=== PATIENT | female | born 1995 | race Caucasian/White ===

== ENCOUNTER 2020-05-22 13:03 | Outpatient (REF) | payer OTHER, SELFPAY ==
[2020-05-22 17:37] LABS: Glucose Urine UA NEG (NEG); Leukocyte Esterase Urine NEG (NEG); Nitrite Urine NEG (NEG); Specific Gravity - Urine <= 1.005 (1.005-1.025); Urine Blood TRACE (NEG); Urine Ketones NEG (NEG); Urine Protein NEG (NEG-TRACE)
[2020-05-22 17:40] LABS: Appearance Urine CLEAR; Color Urine STRAW
[2020-05-22 17:44] LABS: RBC Urine 0-2 /HPF (0); Squamous Epithelial Cell Urine TRACE /LPF; WBC Urine 0 /HPF (0-4)
[2020-05-23 09:35] LABS: BV Int Neg Control Negative (Negative); BV Int Pos Control Positive (Positive)
[2020-05-28 11:34] LABS: CT PCR NOT DETECTED (Not Detect.); NG PCR NOT DETECTED (Not Detect.)
== END 2020-05-22 13:04 | disposition home or self-care (01) ==
LOC: HO.LAB 13:03
PROVIDERS: PCP Internal Medicine; Referring Provider Internal Medicine; Visit Provider Advanced Practice Midwife
DX: N89.8 Other specified noninflammatory disorders of vagina (principal)
CPT/HCPCS: 81001; 87480; 87491; 87510; 87591; 87660; 99202

== ENCOUNTER → 2020-06-05 12:50 | Outpatient (BNVA) | payer OTHER, SELFPAY | PROVIDERS: PCP Internal Medicine; Visit Provider Advanced Practice Midwife | DX: Z76.89 Persons encountering health services in other specified circumstances (principal) ==

== ENCOUNTER 2020-12-09 11:00 | Outpatient (REF) | payer OTHER, SELFPAY ==
[2020-12-10 02:37] LABS: CT PCR NOT DETECTED (Not Detect.); NG PCR NOT DETECTED (Not Detect.)
[2020-12-10 09:16] LABS: BV Int Neg Control Negative (Negative); BV Int Pos Control Positive (Positive)
== END 2020-12-09 11:01 | disposition home or self-care (01) ==
LOC: HO.LAB 11:00
PROVIDERS: PCP Internal Medicine; Visit Provider Advanced Practice Midwife
DX: Z01.411 Encounter for gynecological examination (general) (routine) with abnormal findings (principal); Z20.2 Contact with and (suspected) exposure to infections with a predominantly sexual mode of transmission; N89.8 Other specified noninflammatory disorders of vagina
CPT/HCPCS: 81025; 87480; 87491; 87510; 87591; 87660; 99212

== ENCOUNTER 2020-12-13 09:44 | Outpatient (REF) | payer OTHER, SELFPAY ==
--- NOTE | ~2020-12-13 | US_ITS ---
EXAMINATION: OBSTETRICAL ULTRASOUND, FIRST TRIMESTER HISTORY: 25-year-old with unknown LMP LMP: N/A COMPARISON: None in this TECHNIQUE: Real time transabdominal imaging with color and M-mode Doppler. FINDINGS: An empty intrauterine gestational sac is noted. The mean sac diameter is 7.4 mm corresponding to 5 weeks and 2 days of gestation. No pole noted. Both maternal ovaries are seen and appear normal. No free fluid. GESTATIONAL AGE: 1. GA from LMP: N/A wks 2. GA from AUA: 5.2 wks ESTIMATED DATE OF DELIVERY: 1. STAN from LMP: N/A 2. STAN from AUA: 08/13/2021 US/US OB <= 14 weeks fetus IMPRESSION: 1. An empty intrauterine gestational sac. 2. Mean sac diameter corresponding to 5.2 weeks. No pole noted. This can be consistent with the early gestational age. A serial serum beta hCG and a follow-up ultrasound in one week should be considered. Thank you very much for this referral. This note was generated with a voice recognition program. Please excuse any errors which may have been overlooked during my review of this note. Sometimes these errors may affect the content or meaning of a given sentence.
--- NOTE | ~2020-12-13 | US_ITS ---
EXAMINATION: OBSTETRICAL ULTRASOUND, FIRST TRIMESTER HISTORY: 25-year-old with unknown LMP LMP: N/A COMPARISON: None in this TECHNIQUE: Real time transabdominal imaging with color and M-mode Doppler. FINDINGS: An empty intrauterine gestational sac is noted. The mean sac diameter is 7.4 mm corresponding to 5 weeks and 2 days of gestation. No pole noted. Both maternal ovaries are seen and appear normal. No free fluid. GESTATIONAL AGE: 1. GA from LMP: N/A wks 2. GA from AUA: 5.2 wks ESTIMATED DATE OF DELIVERY: 1. STAN from LMP: N/A 2. STAN from AUA: 08/13/2021 US/US OB transvaginal IMPRESSION: 1. An empty intrauterine gestational sac. 2. Mean sac diameter corresponding to 5.2 weeks. No pole noted. This can be consistent with the early gestational age. A serial serum beta hCG and a follow-up ultrasound in one week should be considered. Thank you very much for this referral. This note was generated with a voice recognition program. Please excuse any errors which may have been overlooked during my review of this note. Sometimes these errors may affect the content or meaning of a given sentence.
== END 2020-12-13 09:45 | disposition home or self-care (01) ==
LOC: HO.US 09:44
PROVIDERS: Visit Provider Advanced Practice Midwife
DX: Z32.01 Encounter for pregnancy test, result positive (principal); Z36.87 Encounter for antenatal screening for uncertain dates
CPT/HCPCS: 76801; 76817

== ENCOUNTER 2020-12-20 12:35 | Outpatient (REF) | payer OTHER, SELFPAY ==
--- NOTE | ~2020-12-20 | US_ITS ---
EXAMINATION: OBSTETRICAL ULTRASOUND, FIRST TRIMESTER HISTORY: 25-year-old at 6.2 weeks of gestation Viability LMP: Uncertain COMPARISON: 12/13/2020 TECHNIQUE: Real time transabdominal imaging with color and M-mode Doppler. FINDINGS: A single, live IUP CRL of 3.3 mm c/w 6.0wks is noted. Heart Rate: 88 beats per minute. Both maternal ovaries are seen and appear normal. GESTATIONAL AGE: 1. GA from LMP: 6.2 wks 2. GA from AUA: 6.0 wks ESTIMATED DATE OF DELIVERY: 1. STAN from LMP: 08/13/2021 2. STAN from AUA: 08/15/2021 US/US OB <= 14 weeks fetus IMPRESSION: 1. A single live IUP with CRL consistent with 6.0 weeks 2. heart rate of 88 bpm. No heart rate is slow within expected. However, this can be consistent with her GA. 3. Suggest a follow-up in one week. Thank you very much for this referral. This note was generated with a voice recognition program. Please excuse any errors which may have been overlooked during my review of this note. Sometimes these errors may affect the content or meaning of a given sentence.
== END 2020-12-20 12:36 | disposition home or self-care (01) ==
LOC: HO.US 12:35
PROVIDERS: PCP Internal Medicine; Visit Provider Advanced Practice Midwife
DX: Z34.91 Encounter for supervision of normal pregnancy, unspecified, first trimester (principal)
CPT/HCPCS: 36415; 76801; 84702

== ENCOUNTER 2020-12-30 14:18 | Outpatient (REF) | payer OTHER, SELFPAY ==
--- NOTE | ~2020-12-30 | US_ITS ---
EXAMINATION: US OBSTETRICAL FOLLOW UP WITH BIOPHYSICAL PROFILE CLINICAL INFORMATION: Follow-up slow heart rate COMPARISON: Previous OB ultrasounds most recent 12/20/2020 TECHNIQUE: Real time transabdominal imaging with color and M-mode Doppler. Findings: The uterus is anteverted. There is an intrauterine gestational sac. Platina-rump length measures 1.0 cm suggesting gestational age of 7 weeks 1 day with estimated date of delivery of 08/17/2021. heart rate is 152 bpm. There is a yolk sac. There is a small hypoechoic area adjacent to the gestational sac suggestive of a small subchorionic hemorrhage. This measures 2.4 x 0.3 x 2.8 cm. The right maternal ovary is normal-appearing and measures 2 x 1.3 x 1.3 cm. The left maternal ovary measures 2.3 x 1.6 x 1.5 cm. There is a 1.4 x 1.2 x 1.7 cm left ovarian cyst. There is no fluid in the pelvis. US/US OB follow up IMPRESSION: Single viable intrauterine fetus. From today's measurements, gestational age is estimated at 7 weeks 1 day with estimated date of delivery of 08/17/2021.
== END 2020-12-30 14:19 | disposition home or self-care (01) ==
LOC: HO.US 14:18
PROVIDERS: Visit Provider Obstetrics & Gynecology
DX: O26.891 Other specified pregnancy related conditions, first trimester (principal); R10.2 Pelvic and perineal pain
CPT/HCPCS: 76816; 99212

== ENCOUNTER 2020-12-30 15:35 | Outpatient (REF) | payer OTHER, SELFPAY ==
[2020-12-31 06:07] LABS: CT PCR NOT DETECTED (Not Detect.); NG PCR NOT DETECTED (Not Detect.)
== END 2020-12-30 15:36 | disposition home or self-care (01) ==
LOC: HO.LAB 15:35
PROVIDERS: Visit Provider Obstetrics & Gynecology
DX: O26.891 Other specified pregnancy related conditions, first trimester (principal); R10.2 Pelvic and perineal pain
CPT/HCPCS: 86850; 86900; 86901; 87491; 87591

== ENCOUNTER → 2021-01-15 13:22 | Outpatient (BNVA) | payer OTHER, SELFPAY | PROVIDERS: PCP Internal Medicine; Visit Provider Advanced Practice Midwife | DX: O26.891 Other specified pregnancy related conditions, first trimester (principal); R63.6 Underweight; R48.0 Dyslexia and alexia; Z3A.09 9 weeks gestation of pregnancy | CPT/HCPCS: 99212 ==

== ENCOUNTER 2021-01-31 14:29 | Outpatient (REF) | payer OTHER, SELFPAY ==
--- NOTE | ~2021-01-31 | US_ITS ---
EXAMINATION: OBSTETRICAL ULTRASOUND, FIRST TRIMESTER HISTORY: 25-year-old at 11.5 weeks of gestation NT screening COMPARISON: 12/30/2020 TECHNIQUE: Real time transabdominal imaging with color and M-mode Doppler. FINDINGS: A single, live IUP CRL of 59.1 mm c/w 12.3wks is noted. Heart Rate: 170 beats per minute. Normal yolk sac seen. NT was 1.29.mm. NB Present The embryo appears sonographically wnl for this GA. Both maternal ovaries are seen and appear normal. GESTATIONAL AGE: 1. Established GA: 11.5 wks 2. GA from AUA: 12.3 wks ESTIMATED DATE OF DELIVERY: 1. Established STAN: 08/17/2021 2. STAN from AUA: 08/12/2021 US/US OB 1T nuc measure IMPRESSION: 1. Single live IUP 2. Size equals dates 3. NT of 1.29 mm MFM Consultation: I reviewed the ultrasound findings along with significance of NT measurement. The NT of less than 3mm is generally reassuring. However, the sensitivity for T21 detection is only 60%. I reviewed the availability of serum aneuploidy screening which includes cell-free DNA and placental protein based tests. I discussed the sensitivity, false-positive rate, and other limitations associated with each test. I also reviewed the availability of invasive diagnostic tests that are associated small but definite risk of miscarriage. We also reviewed the differences between screening tests and diagnostic tests. After our discussion, she opted for the First trimester screening that is based on cell-free DNA or non-invasive testing (NIPT). The result will be faxed to your office in approximately 7 days. A follow up at 18 weeks for survey has been scheduled. Thank you very much for this referral. Total time 30 minutes. The time spent was devoted to counseling the patient about the disease and diagnosis, coordinating care including reviewing her records, pertinent lab data and studies, as well as discussing diagnostic evaluation and workup, plan therapeutic interventions and future disposition of care. This includes any additional research needed to obtain further information in formulating the plan of care of this patient. This note was generated with a voice recognition program. Please excuse any errors which may have been overlooked during my review of this note. Sometimes these errors may affect the content or meaning of a given sentence.
== END 2021-01-31 14:30 | disposition home or self-care (01) ==
LOC: HO.US 14:29
PROVIDERS: PCP Internal Medicine; Visit Provider Advanced Practice Midwife
DX: Z34.90 Encounter for supervision of normal pregnancy, unspecified, unspecified trimester (principal); Z36.82 Encounter for antenatal screening for nuchal translucency
CPT/HCPCS: 76813

== ENCOUNTER 2021-03-21 13:22 | Outpatient (REF) | payer OTHER, SELFPAY ==
[2021-03-22 01:57] LABS: CT PCR NOT DETECTED (Not Detect.); NG PCR NOT DETECTED (Not Detect.)
[2021-03-22 15:20] LABS: BV Int Neg Control Negative (Negative); BV Int Pos Control Positive (Positive)
== END 2021-03-21 13:23 | disposition home or self-care (01) ==
LOC: HO.LAB 13:22
PROVIDERS: PCP Internal Medicine; Visit Provider Advanced Practice Midwife
DX: O99.342 Other mental disorders complicating pregnancy, second trimester (principal); F41.9 Anxiety disorder, unspecified; O26.892 Other specified pregnancy related conditions, second trimester; R48.0 Dyslexia and alexia; Z3A.18 18 weeks gestation of pregnancy
CPT/HCPCS: 81003; 87480; 87491; 87510; 87591; 87660; 88142; 99212

== ENCOUNTER 2021-03-24 10:46 | Outpatient (REF) | payer OTHER, SELFPAY ==
[2021-03-24 12:57] LABS: Amphetamine Screen Urine Not Detected (Not Detect); Barbiturates, Urine Not Detected (Not Detect); Benzodiazepines Screen Urine Not Detected (Not Detect); Cannabinoid Screen Urine Not Detected (Not Detect); Cocaine Screen Urine Not Detected (Not Detect); Fentanyl, urine Not Detected (Not Detect); Opiate Screen Urine Not Detected (Not Detect); Phencyclidine Screen Urine Not Detected (Not Detect)
[2021-03-24 13:28] LABS: Hematocrit 30.4 % (37-47); Hemoglobin 10.4 g/dl (12.0-16.0); Mean Corpuscular HGB Conc 34.2 g/dl (31.0-35.0); Mean Corpuscular Hemoglobin 34.7 pg (27.0-33.0); Mean Corpuscular Volume 101.3 fL (80-98); Mean Platelet Volume 9.1 fL (9.4-12.3); Platelet Count 323 X10*3/uL (160-400); Red Cell Distribution Width 12.7 % (11.0-16.0); White Blood Count 13.3 X10*3/uL (4.8-10.8)
[2021-03-24 13:50] LABS: Glucose 1 Hour PP 50gm Dose 109 mg/dL (60-140)
[2021-03-24 14:22] LABS: Syphilis Screen Nonreactive (Nonreactive)
[2021-03-25 04:41] LABS: HBsAGNum1 0.21 S/CO (0.00-0.99); HIV AB/AG Nonreactive (Nonreactive); HIV Num 1 0.07 S/CO (0.00-0.99); Hepatitis B Surface Antigen Negative (Negative); ~HepC Num1 0.18 S/CO (0.00-0.79); ~Hepatitis C Antibody Nonreactive (Nonreactive)
== END 2021-03-24 10:47 | disposition home or self-care (01) ==
LOC: HO.LAB 10:46
PROVIDERS: PCP Internal Medicine; Visit Provider Advanced Practice Midwife
DX: Z34.90 Encounter for supervision of normal pregnancy, unspecified, unspecified trimester (principal)
CPT/HCPCS: 80307; 85027; 86762; 86780; 86787; 86803; 86850; 86900; 86901; 87086; 87340; 87389

== ENCOUNTER 2021-04-04 13:35 | Outpatient (REF) | payer OTHER, SELFPAY ==
--- NOTE | ~2021-04-04 | US_ITS ---
EXAMINATION: US OBSTETRICAL CLINICAL INFORMATION: A 25-year-old at 21.0 weeks of gestation Suspected anomaly COMPARISON: 01/31/2021 TECHNIQUE: Real-time transabdominal ultrasound was performed using C1-5 megahertz transducer. FINDINGS: A single, active, fetus is seen in vertex presentation. The placenta is anterior without previa, and the amniotic fluid volume is wnl. MEASUREMENTS: 1. Biparietal Diameter: 5.2 cm; 21.5 wks 2. Occipital Frontal Diameter: 6.6 cm 3. Head Circumference: 19.0 cm; 21.2 wks 4. Abdominal Circumference: 15.8 cm; 21.0 wks 5. Femur Length: 3.5 cm; 21.1 wks 6. Humerus Length: 3.3 cm; 21.1 wks 7. Tibia Length: 3.0 cm; 21.0 wks 8. Ulna Length: 3.1 cm; 21.3 wks 9. Lateral ventricle: 0.66 cm 10. Cerebellum: 2.1 cm; 21.0 wks 11. Cisterna Magna: 0.36 cm 12. Nuchal Fold: N/A mm 13. Heart Rate: 144 beats per minute Rt ovary: normal Lt ovary: normal Cervical length 3.9 cm on T/A. GESTATIONAL AGE: 1. Established GA: 21.0 wks 2. GA from [facility]: 21.2 wks ESTIMATED DATE OF DELIVERY: 1. Established STAN: 08/15/2021 2. STAN from [facility]: 08/13/2021 ANATOMY: The visualized anatomy includes but not limited to: 1. Cranium: Normal 2. Intracranial anatomy: cavum septum pellucidi, lateral ventricles, choroid plexus, cerebellum, posterior fossa, third and fourth ventricles. 3. face: orbits, lip/palate, profile, nasal bone 4. Heart: four-chamber view of the heart, ventricular septum, foramen ovale, pulmonary vein, left and right outflow tracts, three-vessel view, 3 vessel trachea view, aortic and ductal arches, situs.. 5. Diaphragm: Normal 6. Abdominal wall: Normal 7. Cord Insertion: Normal 8. Spine: Cervical, thoracic, lumbar, sacral. 9. Stomach: Normal size and shape 10. Right Kidney: Normal 11. Left Kidney: Normal 12. 3 vessel cord: Normal 13. Upper extremity: Open hands, fifth digit. 14. Lower extremity: Tibia, fibula, bilateral feet. 15. Bladder: Normal 16. Genitalia: Male, patient aware US/US OB /maternal detail IMPRESSION: 1. Single, living, intrauterine with appropriate biometry. 2. Normal survey DISCUSSION: I reviewed today's ultrasound findings. We discussed the limitations of ultrasound in diagnosing aneuploidy and other congenital abnormalities. I reviewed the differences between screening test and diagnostic test. Amniocentesis was discussed and declined. She was informed that the baseline incidence of congenital abnormalities is approximately 3-5%. Not all these conditions are diagnosable in utero. RECOMMENDATIONS: 1. Follow-up when necessary Thank you for allowing me to participate in her care. Total time 20 minutes. The time spent was devoted to counseling the patient about the disease and diagnosis, coordinating care including reviewing her records, pertinent lab data and studies, as well as discussing diagnostic evaluation and workup, plan therapeutic interventions and future disposition of care. This includes any additional research needed to obtain further information in formulating the plan of care of this patient. This note was generated with a voice recognition program. Please excuse any errors which may have been overlooked during my review of this note. Sometimes these errors may affect the content or meaning of a given sentence.
== END 2021-04-04 13:36 | disposition home or self-care (01) ==
LOC: HO.US 13:35
PROVIDERS: PCP Internal Medicine; Visit Provider Obstetrics & Gynecology
DX: Z36.3 Encounter for antenatal screening for malformations (principal); O26.892 Other specified pregnancy related conditions, second trimester; F41.9 Anxiety disorder, unspecified; R48.0 Dyslexia and alexia; R63.6 Underweight
CPT/HCPCS: 76811

== ENCOUNTER 2021-04-22 08:51 | Outpatient (REF) | payer OTHER, SELFPAY ==
[2021-04-22 14:36] LABS: CT PCR NOT DETECTED (Not Detect.); NG PCR NOT DETECTED (Not Detect.)
[2021-04-23 11:00] LABS: BV Int Neg Control Negative (Negative); BV Int Pos Control Positive (Positive)
== END 2021-04-22 08:52 | disposition home or self-care (01) ==
LOC: HO.LAB 08:51
PROVIDERS: PCP Internal Medicine; Visit Provider Obstetrics & Gynecology
DX: O26.892 Other specified pregnancy related conditions, second trimester (principal); N89.8 Other specified noninflammatory disorders of vagina; R30.0 Dysuria; Z3A.23 23 weeks gestation of pregnancy
CPT/HCPCS: 87086; 87480; 87491; 87510; 87591; 87660; 99212

== ENCOUNTER 2021-05-20 15:32 | Outpatient (REF) | payer OTHER, SELFPAY ==
[2021-05-21 09:31] LABS: CT PCR NOT DETECTED (Not Detect.); NG PCR NOT DETECTED (Not Detect.)
[2021-05-21 10:03] LABS: BV Int Neg Control Negative (Negative); BV Int Pos Control Positive (Positive)
== END 2021-05-20 15:33 | disposition home or self-care (01) ==
LOC: HO.LAB 15:32
PROVIDERS: PCP Internal Medicine; Visit Provider Obstetrics & Gynecology
DX: O26.892 Other specified pregnancy related conditions, second trimester (principal); Z23 Encounter for immunization; N89.8 Other specified noninflammatory disorders of vagina; Z3A.27 27 weeks gestation of pregnancy
CPT/HCPCS: 87480; 87491; 87510; 87591; 87660; 99212

== ENCOUNTER 2021-05-24 09:16 | Outpatient (REF) | payer OTHER, SELFPAY ==
[2021-05-24 11:15] LABS: Hematocrit 30.1 % (37.0-47.0); Mean Corpuscular HGB Conc 33.2 g/dl (31.0-35.0); Mean Corpuscular Hemoglobin 34.6 pg (27.0-33.0); Mean Corpuscular Volume 104.2 fL (80.0-98.0); Mean Platelet Volume 9.4 fL (9.4-12.3); Platelet Count 260 X10*3/uL (160-400); Red Blood Count 2.89 X10*6/uL (4.20-5.50); Red Cell Distribution Width 12.9 % (11.0-16.0); White Blood Count 12.5 X10*3/uL (4.8-10.8)
[2021-05-24 12:12] LABS: Glucose 1 Hour PP 50gm Dose 109 mg/dL (60-140)
[2021-05-26 04:00] LABS: Syphilis Screen Nonreactive (Nonreactive)
== END 2021-05-24 09:17 | disposition home or self-care (01) ==
LOC: HO.LAB 09:16
PROVIDERS: PCP Internal Medicine; Visit Provider Obstetrics & Gynecology
DX: Z34.92 Encounter for supervision of normal pregnancy, unspecified, second trimester (principal)
CPT/HCPCS: 36415; 85027; 86780

== ENCOUNTER → 2021-06-04 13:54 | Outpatient (BNVA) | payer OTHER, SELFPAY | PROVIDERS: PCP Internal Medicine; Visit Provider Obstetrics & Gynecology | DX: Z23 Encounter for immunization (principal); Z34.03 Encounter for supervision of normal first pregnancy, third trimester; Z3A.29 29 weeks gestation of pregnancy | CPT/HCPCS: 90471; 90715; 99212 ==

== ENCOUNTER → 2021-06-18 14:33 | Outpatient (BNVA) | payer OTHER, SELFPAY | PROVIDERS: PCP Internal Medicine; Visit Provider Obstetrics & Gynecology | DX: Z34.03 Encounter for supervision of normal first pregnancy, third trimester (principal); Z3A.31 31 weeks gestation of pregnancy | CPT/HCPCS: 99212 ==

== ENCOUNTER 2021-07-14 15:25 | Outpatient (REF) | payer OTHER, SELFPAY ==
[2021-07-15 13:47] LABS: CT PCR NOT DETECTED (Not Detect.); NG PCR NOT DETECTED (Not Detect.)
[2021-07-16 08:57] LABS: BV Int Neg Control Negative (Negative); BV Int Pos Control Positive (Positive)
== END 2021-07-14 15:26 | disposition home or self-care (01) ==
LOC: HO.LAB 15:25
PROVIDERS: PCP Internal Medicine; Visit Provider Advanced Practice Midwife
DX: O36.8130 Decreased fetal movements, third trimester, not applicable or unspecified (principal); Z3A.35 35 weeks gestation of pregnancy
CPT/HCPCS: 59025; 87081; 87147; 87480; 87491; 87510; 87591; 87660; 99212

== ENCOUNTER → 2021-07-25 12:52 | Outpatient (BNVA) | payer OTHER, SELFPAY | PROVIDERS: PCP Internal Medicine; Visit Provider Advanced Practice Midwife | DX: O99.820 Streptococcus B carrier state complicating pregnancy (principal); Z3A.36 36 weeks gestation of pregnancy | CPT/HCPCS: 99212 ==

== ENCOUNTER → 2021-08-06 14:36 | Outpatient (BNVA) | payer OTHER, SELFPAY | PROVIDERS: PCP Internal Medicine; Visit Provider Advanced Practice Midwife | DX: O36.8130 Decreased fetal movements, third trimester, not applicable or unspecified (principal); O99.820 Streptococcus B carrier state complicating pregnancy; Z3A.38 38 weeks gestation of pregnancy | CPT/HCPCS: 59025; 99212 ==

== ENCOUNTER 2024-03-31 13:46 | Outpatient (AMB) | payer OTHER, SELFPAY ==
[2024-03-31 13:48] VITALS: BP 122/76; PULSE 87; O2SAT 99; BMI 22.4
--- NOTE | 2024-03-31 13:48 | A.OFFPC_ITS ---
Vital Signs 3 03/31/24 13:48 Height 5 ft 1 in Weight 118 lb 8 oz BMI 22.4 BP 122/76 Blood Pressure Location Rt brachial Position Sitting Pulse 87 Pulse Source Pulse Oximeter Pulse Oximetry (%) 99 Oxygen Delivery Method Room Air Intake Visit Reasons: Regular visit Allergies No Known Allergies [No Known Allergies*] Allergy (Verified 03/31/24 13:48) Medication List - Last Reconciled 03/31/24 by Joy Simpson MD meclizine 25 mg PO TID PRN 30 days PNV,calcium 65-hvao-pqawz acid 27 mg iron- 1 mg ( Vitamins Plus Low Iron) 1 tab PO DAILY Tobacco use date assessed: 03/31/24 Dental Screening Dental Screen Date: 03/31/24 Did you have a dental visit in the last 12 months?: Yes Did you have a dental problem in the last 6 months where you did not have access to dental care?: No Was dental information given to patient?: Patient has dentist HPI Regular visit 2 HPI0 Details Patient is a 48-year-old female came in for establish care Complaining of feeling dizzy for the past 1 week Patient says that every time she moves her head or when she stand up from sitting position she feels dizzy She does not have any history of allergies There is no ear pain there is no fever no chills She also have a small lump in the back that she need to be checked Patient have a 2-year-old child and she had a miscarriage in October After the delivery 2 years ago she has developed lot of striations around her abdomen I am treating her with meclizine 25 mg she may take that every 8 hour if needed Patient was instructed not to move quickly to avoid the dizzy spells Lab order placed to be done fasting Cyst in her back is size of large Pea, and look since it feels like a dermoid cyst She is to return in 4 or 6 weeks for follow-up appointment [facility] Medical History Stomach acid Family History Maternal Grandmother Diabetes Cancer of breast Father Diabetes HTN (hypertension) Obesity Sister Microcephalic Social History Household Members: Significant Other and Other Household Members Other:: Significant other's mother Housing: Apartment Are you a primary animal care giver to a significant other at home: No Do you presently have visiting nurse or other home services: No Alcohol intake: former Patient Tobacco Use Status: Former Tobacco user e-Cigarette/Vaping Use: Never Used Substance Use Type: Marijuana service: No Current occupational status: unemployed Gender identity: Female Cognitive needs: No Hearing needs: No Vision needs: No Female Reproductive History Menstrual Age of Menarche: 14 Questionnaire PHQ-9 Over the last 2 weeks, how often have you been bothered by any of the following problems? 1. Little interest or pleasure in doing things: more than half the days 2. Feeling down, depressed, or hopeless: nearly every day 3. Trouble falling or staying asleep, or sleeping too much: more than half the days 4. Feeling tired or having little energy: more than half the days 5. Poor appetite or overeating: more than half the days 6. Feeling bad about yourself - or that you are a failure or have let yourself or your family down: several days 7. Trouble concentrating on things, such as reading the newspaper or watching television: more than half the days 8. Moving or speaking so slowly that other people could have noticed. Or the opposite - being so fidgety or restless that you have been moving around a lot more than usual: several days 9. Thoughts that you would be better off or of hurting yourself in some way: several days Total score: 16 Depression Screening Interpretation: Positive Depression Screening Follow-up: Follow-up Visit Requested Depression Screening Done: Yes 41292 - PHQ-9 Billing: Yes Source: Developed by Drs. Gerard Chandler, Elizabet Horner, Stephon Craig and colleagues, with an educational chintan from [employer]. Thrive Questionnaire Date Thrive assessed: 03/31/24 I am a: Patient What is your living situation today?: I have a steady place to live Within the past 12 months, did the food you bought not last and you didn't have the money to get more?: Never true Within the past 12 months, did you worry whether your food would run out before you got money to buy more?: Never true Do you have trouble paying for medicines?: Yes Do you have trouble getting transportation to medical appointments?: Yes Do you have trouble paying your heating and electricity bill?: I choose not to answer this question Do you have trouble taking care of your child, family member or friend?: No Do you have trouble with day-to-day activities such as bathing, preparing meals, shopping, managing finances, etc.?: I choose not to answer this question Are you currently unemployed and looking for a job?: I choose not to answer this question Are you interested in more education?: I choose not to answer this question Please select the resources that you would like help with: None Currently or been in a relationship where the following occur: No concerns reported THRIVE Score: 1 AUDIT C Alcohol Use Questionnaire (AUDIT-C) 1. How often do you have a drink containing alcohol?: Never 3. How often do you have six or more drinks on one occasion?: Never Total Score: 0 Score Reviewed/Action Taken: Yes BRODIE-7 AMB Questionnaire BRODIE-7 Date BRODIE - 7 assessed: 03/31/24 Feeling nervous, anxious, or on edge: 1 = Several days Not being able to stop or control worryin = Several days Worrying too much about different things: 1 = Several days Trouble relaxin = Not at all Being so restless that it is hard to sit still: 0 = Not at all Becoming easily annoyed or irritable: 0 = Not at all Feeling afraid as if something awful might happen: 0 = Not at all Total BRODIE-7 score (0-4 normal; 5-9 mild; 10-14 moderate; 15-21 severe): 3 Source: Developed by Drs. Gerard Chandler, Elizabet Horner, Stephon Craig and colleagues, with an educational chintan from [employer]. BRODIE-7 Assessment Billing BRODIE-7 Assessment Tool: BRODIE-7 Assessment 30044 Review of Systems Const Denies chills, Denies fever(s), Denies night sweats and Denies weight loss Eyes Denies blurry vision and Denies eye discharge ENT Denies dysphagia, Denies vertigo, Denies tinnitus, Denies sinus pressure and Denies sore throat Card Denies acrocyanosis, Denies chest pain at rest, Denies chest pain with activity, Denies syncope, Denies lightheadedness, Denies palpitations and Denies dyspnea Resp Denies chest congestion, Denies cough, Denies hemoptysis, Denies pain with cough and Denies dyspnea GI Denies dysphagia, Denies fecal incontinence, Denies diarrhea and Denies nausea Musc Denies tingling Skin/Breast Denies breast pain, Denies pruritus, Denies non-healing lesions, Denies rash and Denies jaundice Neuro Denies vertigo, Denies syncope, Denies tingling, Denies paresthesias and Denies tremor(s) Endo Denies cold intolerance, Denies heat intolerance and Denies palpitations León/Lymph Denies easy bleeding Physical exam (Primary Care) Vital Signs: Last Vital Signs Pulse 87 03/31/24 13:48 BP 122/76 03/31/24 13:48 Pulse Ox 99 03/31/24 13:48 Oxygen Delivery Method Room Air 03/31/24 13:48 BMI result Body Mass Index 22.4 Tobacco/Smoking Status: Tobacco use Status Tobacco use date assessed 03/31/24 03/31/24 13:49 Patient Tobacco Use Status Former Tobacco user 03/31/24 13:49 e-Cigarette/Vaping Use Never Used 03/31/24 13:49 PHQ-9: PHQ-9 Score PHQ-9: Total score 16 03/31/24 14:18 Depression Screening Interpretation: Positive Depression Screening Follow-up: Follow-up Visit Requested Thrive Assessment: Date of Thrive Assessment Date Thrive assessed 03/31/24 03/31/24 14:16 Currently or been in a relationship where the following occur: No concerns reported Const General: cooperative, comfortable and no acute distress Orientation/consciousness: patient oriented x3 [facility] Head: Yes normocephalic and Yes atraumatic Ears: hearing grossly normal bilaterally and external ears normal General nose exam: Normal external nose present Face and sinus: No erythema Mouth: lip normal and no drooling Eyes General: appearance normal, both eyes and all related structures Eyelids: Yes eyelids normal Conjunctivae: conjunctivae normal Sclerae: sclerae normal Pupils: Equal, round and reactive pupils present EOM: EOMs intact bilaterally Neck Neck: Yes trachea midline and Yes supple Resp Effort & Inspection: normal respiratory effort, no audible wheezes and no cough Auscultation: clear to auscultation bilaterally Cardio Rhythm: regular rhythm Heart sounds: S1 normal heart sound present and S2 normal heart sound present Back/Spine/Pelvis Back/spine/pelvis image: 2 1. Small dermoid cyst nontender, size of large Pea Skin General skin exam: elasticity normal and turgor normal Neuro General: patient oriented x3 and gait normal Cranial nerves: Yes Equal, round and reactive pupils present Extrem Left upper extremity: no edema Right lower extremity: no edema Psych Appearance: grossly normal Mental Status: mental status grossly normal Speech and movement: Normal speech and movement present Affect: normal affect Attitude: cooperative Thought process: Normal thought process present Thought content: Normal thought content present Insight: Good insight present (Psych) Judgement: Good judgement present (Psych) Coding Level of Care Code New Pt Level 4 (83908) Diagnoses Establishing care with new doctor, encounter for Z76.89 Dizziness R42 Dermoid cyst D36.9 Positive depression screening Z13.31 Additional Codes BRODIE-7 Assessment Billing - BRODIE-7 Assessment Tool: BRODIE-7 Assessment 97609 ([id number]) Assessment & Plan Assessment & Plan (1) Establishing care with new doctor, encounter for: Code(s): Z76.89 - Persons encountering health services in other specified circumstances Category: Medical (2) Dizziness: Code(s): R42 - Dizziness and giddiness Category: Medical (3) Dermoid cyst: Code(s): D36.9 - Benign neoplasm, unspecified site Category: Medical (4) Positive depression screening: Code(s): Z13.31 - Encounter for screening for depression Category: Medical Plan Patient is a 48-year-old female came in for establish care Complaining of feeling dizzy for the past 1 week Patient says that every time she moves her head or when she stand up from sitting position she feels dizzy She does not have any history of allergies There is no ear pain there is no fever no chills She also have a small lump in the back that she need to be checked Patient have a 2-year-old child and she had a miscarriage in October After the delivery 2 years ago she has developed lot of striations around her abdomen I am treating her with meclizine 25 mg she may take that every 8 hour if needed Patient was instructed not to move quickly to avoid the dizzy spells Lab order placed to be done fasting Cyst in her back is size of large Pea, and look since it feels like a dermoid cyst A depression screening is positive, I have sent message to our behavior health coordinator to reach out to patient Offer therapy At her next visit we will talk about medication She is to return in 4 or 6 weeks for follow-up appointment Orders: Orders 2 Complete Blood Count Auto Diff Today D36.9 - Benign neoplasm, unspecified site, R42 - Dizziness and giddiness, Z76.89 - Persons encountering health services in other specified circumstances Comprehensive [place]. Panel Fast Today D36.9 - Benign neoplasm, unspecified site, R42 - Dizziness and giddiness, Z76.89 - Persons encountering health services in other specified circumstances Vitamin D 25-OH (D2 and D3) Today D36.9 - Benign neoplasm, unspecified site, R42 - Dizziness and giddiness, Z76.89 - Persons encountering health services in other specified circumstances Lipid Panel Today D36.9 - Benign neoplasm, unspecified site, R42 - Dizziness and giddiness, Z76.89 - Persons encountering health services in other specified circumstances TSH reflex Free T4 Today D36.9 - Benign neoplasm, unspecified site, R42 - Dizziness and giddiness, Z76.89 - Persons encountering health services in other specified circumstances UA CC w/rflx Micro + Cult Today D36.9 - Benign neoplasm, unspecified site, R42 - Dizziness and giddiness, Z76.89 - Persons encountering health services in other specified circumstances Medications: New 2 meclizine 25 mg PO TID PRN 30 tabs 0RF dizziness 30 days
== END 2024-03-31 14:20 | disposition home or self-care (01) ==
PROVIDERS: PCP Internal Medicine; Visit Provider Internal Medicine
DX: Z76.89 Persons encountering health services in other specified circumstances (principal); R42 Dizziness and giddiness; D36.9 Benign neoplasm, unspecified site; Z13.31 Encounter for screening for depression

== ENCOUNTER → 2024-03-31 13:46 | Outpatient (BNVA) | payer OTHER, SELFPAY | PROVIDERS: PCP Internal Medicine; Visit Provider Internal Medicine | DX: R42 Dizziness and giddiness (principal); D36.9 Benign neoplasm, unspecified site; Z76.89 Persons encountering health services in other specified circumstances | CPT/HCPCS: 96127; 99202 ==

== ENCOUNTER 2024-03-31 14:22 | Outpatient (REF) | payer OTHER, SELFPAY ==
[2024-03-31 16:18] LABS: MANUAL DIFF FLAG NO
[2024-03-31 16:28] LABS: Appearance Urine Clear; Color Urine Yellow; Glucose Urine UA Negative (Negative); Leukocyte Esterase Urine Negative (Negative); Nitrite Urine Negative (Negative); PH 7.5 (5.0-9.0); Specific Gravity - Urine <= 1.005 (1.005-1.025); UMIC TRIGGER UACC YES; Urine Blood Moderate (2+) (Negative); Urine Ketones Negative (Negative); Urine Protein Negative (Neg-Trace)
[2024-03-31 16:28] LABS: Basophils Absolute Auto 0.1 X10*3/uL (0.0-0.2); Basophils Percent Auto 0.6 % (0-2); Eosinophils Absolute Auto 0.2 X10*3/uL (0.0-0.4); Eosinophils Percent Auto 1.9 % (0-4); Hematocrit 39.7 % (37.0-47.0); Hemoglobin 13.2 g/dl (12.0-16.0); Imm Gran Abs Auto 0.03 X10*3/uL (0.00-0.03); Imm Gran Pct Auto 0.4 % (0.0-0.4); Lymphocytes Absolute Auto 2.9 X10*3/uL (1.2-4.9); Lymphocytes Percent Auto 33.9 % (20-40); Mean Corpuscular HGB Conc 33.2 g/dl (31.0-35.0); Mean Corpuscular Hemoglobin 33.7 pg (27.0-33.0); Mean Corpuscular Volume 101.3 fL (80.0-98.0); Mean Platelet Volume 10.4 fL (9.4-12.3); Monocytes Absolute Auto 0.7 X10*3/uL (0.1-1.2); Monocytes Percent Auto 7.7 % (2-11); Neutrophils Absolute Auto 4.7 x10*3/uL (2.0-8.3); Neutrophils Percent Auto 55.5 % (45-73); Platelet Count 297 X10*3/uL (160-400); Red Blood Count 3.92 X10*6/uL (4.20-5.50); Red Cell Distribution Width 12.7 % (11.0-16.0); White Blood Count 8.5 X10*3/uL (4.8-10.8)
[2024-03-31 16:46] LABS: Alanine Aminotransferase 18 U/L (0-31); Albumin Level 4.7 g/dL (3.5-5.0); Alkaline Phosphatase 76 U/L (39-117); Anion Gap 13 (12-20); Aspartate Amino Transferase 19 U/L (5-31); Bilirubin Total 0.4 mg/dL (0.0-1.0); Blood Urea Nitrogen 9 mg/dL (9-16); Calcium 9.9 mg/dL (8.4-10.2); Carbon Dioxide 24 mmol/L (22-29); Chloride 108 mmol/L (96-108); Cholesterol 165 mg/dL (<200); Estimated Glomerular Filt Rate > 60; Glucose Fasting 93 mg/dL (60-99); HDL Cholesterol 52 mg/dL (>40); LDL Cholesterol Calculated 86 mg/dL (<100); Sodium 141 mmol/L (135-145); Total Protein 7.8 g/dL (6.5-8.0); Triglycerides 138 mg/dL (<150)
[2024-03-31 17:04] LABS: TSH reflex Free T4 2.48 uIU/mL (0.32-4.0)
[2024-03-31 17:08] LABS: Bacteria Urine None Seen (None Seen); Hyaline Casts Urine 0-2 /LPF (0-2); RBC Urine 0-2 /HPF (0-2); Squamous Epithelial Cell Urine 0-2 /HPF (0-2); WBC Urine 0-5 /HPF (0-5)
[2024-04-04 14:19] LABS: Vitamin D 25-OH, D2 <4 ng/mL; Vitamin D 25-OH, D3 23 ng/mL; Vitamin D 25-OH, Total 23 ng/mL (30-100)
== END 2024-03-31 14:23 | disposition home or self-care (01) ==
LOC: HO.HMGCLDS 14:22
PROVIDERS: PCP Internal Medicine; Visit Provider Internal Medicine
DX: R42 Dizziness and giddiness (principal); D36.9 Benign neoplasm, unspecified site; Z76.89 Persons encountering health services in other specified circumstances
CPT/HCPCS: 36415; 80053; 80061; 81001; 82306; 84443; 85025

== ENCOUNTER 2024-04-21 12:55 | Outpatient (AMB) | payer OTHER, SELFPAY ==
[2024-04-21 13:00] VITALS: BP 110/76; PULSE 84; O2SAT 97; BMI 22.5
--- NOTE | 2024-04-21 13:00 | MHC.PC.OV ---
Vital Signs 04/21/24 13:00 Height 5 ft 1 in Weight 119 lb BMI 22.5 BP 110/76 Blood Pressure Location Lt brachial Position Sitting Pulse 84 Pulse Source Pulse Oximeter Pulse Oximetry (%) 97 Oxygen Delivery Method Room Air Intake Visit Reasons: 4-6 week follow up Allergies No Known Allergies [No Known Allergies*] Allergy (Verified 04/21/24 13:01) Medication List - Last Reconciled 04/21/24 by Joy Simpson MD meclizine 25 mg PO TID PRN 30 days PNV,calcium 13-tobd-bzkdp acid 27 mg iron- 1 mg ( Vitamins Plus Low Iron) 1 tab PO DAILY Tobacco use date assessed: 03/31/24 Dental Screening Dental Screen Date: 03/31/24 HPI 4-6 week follow up HPI Details Follow-up labs and dizziness Meclizine has helped patient is taking it 3 times a day She will get back to me in 7-10 days if she still have dizziness I have told her to stop taking it at night she may take that in the morning and afternoon If dizziness continues then she will need a vestibular physical therapy Labs reviewed No anemia Kidney and liver functions intact TSH within normal limit Vitamin-D level is low I have sent supplement for that. Patient is depressed but does not want to take a medication and is seeing a therapist already. [facility] Medical History Stomach acid Family History Maternal Grandmother Diabetes Cancer of breast Father Diabetes HTN (hypertension) Obesity Sister Microcephalic Social History Household Members: Significant Other and Other Household Members Other:: Significant other's mother Housing: Apartment Are you a primary director of career services to a significant other at home: No Do you presently have visiting nurse or other home services: No Alcohol intake: former Patient Tobacco Use Status: Former Tobacco user e-Cigarette/Vaping Use: Never Used Substance Use Type: Marijuana service: No Current occupational status: unemployed Gender identity: Female Cognitive needs: No Hearing needs: No Vision needs: No Female Reproductive History Menstrual Age of Menarche: 14 Questionnaire Thrive Questionnaire Date Thrive assessed: 01/29/24 I am a: Patient What is your living situation today?: I have a steady place to live Within the past 12 months, did the food you bought not last and you didn't have the money to get more?: Never true Within the past 12 months, did you worry whether your food would run out before you got money to buy more?: Never true Do you have trouble paying for medicines?: Yes Do you have trouble getting transportation to medical appointments?: Yes Do you have trouble paying your heating and electricity bill?: I choose not to answer this question Do you have trouble taking care of your child, family member or friend?: No Do you have trouble with day-to-day activities such as bathing, preparing meals, shopping, managing finances, etc.?: I choose not to answer this question Are you currently unemployed and looking for a job?: I choose not to answer this question Are you interested in more education?: I choose not to answer this question Currently or been in a relationship where the following occur: No concerns reported THRIVE Score: 1 BRODIE-7 AMB Questionnaire BRODIE-7 Date BRODIE - 7 assessed: 03/31/24 Source: Developed by Drs. Gerard Chandler, Elizabet Horner, Stephon Craig and colleagues, with an educational chintan from [employer]. Review of Systems Const All systems reviewed & are unremarkable except as noted in HPI and below Physical exam (Primary Care) Vital Signs: Last Vital Signs Pulse 84 04/21/24 13:00 BP 110/76 04/21/24 13:00 Pulse Ox 97 04/21/24 13:00 Oxygen Delivery Method Room Air 04/21/24 13:00 BMI result Body Mass Index 22.5 Tobacco/Smoking Status: Tobacco use Status Tobacco use date assessed 03/31/24 04/21/24 13:02 Patient Tobacco Use Status Former Tobacco user 04/21/24 13:02 e-Cigarette/Vaping Use Never Used 04/21/24 13:02 Thrive Assessment: Date of Thrive Assessment Date Thrive assessed 01/29/24 04/21/24 13:02 Currently or been in a relationship where the following occur: No concerns reported Const General: no acute distress Orientation/consciousness: patient oriented x3 Eyes General: appearance normal, both eyes and all related structures Resp Effort & Inspection: normal respiratory effort and able to speak in complete sentences Neuro General: patient oriented x3 Psych Mental Status: mental status grossly normal Coding Level of Care Code Est Pt Level 3 (92485) Diagnoses Benign paroxysmal positional vertigo due to bilateral vestibular disorder H81.13 Laterality: bilateral Vitamin D deficiency E55.9 Recurrent major depressive disorder, in partial remission F33.41 Active/Remission status: in partial remission Assessment & Plan Assessment & Plan (1) Benign positional vertigo: Code(s): H81.10 - Benign paroxysmal vertigo, unspecified ear Category: Medical Qualifiers: Laterality: bilateral Qualified Code(s): H81.13 - Benign paroxysmal vertigo, bilateral (2) Vitamin D deficiency: Code(s): E55.9 - Vitamin D deficiency, unspecified Category: Medical (3) Major depression, recurrent: Code(s): F33.9 - Major depressive disorder, recurrent, unspecified Category: Medical Qualifiers: Active/Remission status: in partial remission Qualified Code(s): F33.41 - Major depressive disorder, recurrent, in partial remission Plan Follow-up labs and dizziness Meclizine has helped patient is taking it 3 times a day She will get back to me in 7-10 days if she still have dizziness I have told her to stop taking it at night she may take that in the morning and afternoon If dizziness continues then she will need a vestibular physical therapy Labs reviewed No anemia Kidney and liver functions intact TSH within normal limit Vitamin-D level is low I have sent supplement for that. Patient is depressed but does not want to take a medication and is seeing a therapist already. Medications: New cholecalciferol (vitamin D3) 25 mcg PO DAILY 90 days 90 caps 1RF
== END 2024-04-21 13:15 | disposition home or self-care (01) ==
LOC: HO.HMCC 12:56
PROVIDERS: PCP Internal Medicine; Visit Provider Internal Medicine
DX: H81.13 Benign paroxysmal vertigo, bilateral (principal); E55.9 Vitamin D deficiency, unspecified; F33.41 Major depressive disorder, recurrent, in partial remission

== ENCOUNTER → 2024-04-21 12:55 | Outpatient (BNVA) | payer OTHER, SELFPAY | PROVIDERS: PCP Internal Medicine; Visit Provider Internal Medicine | DX: H81.13 Benign paroxysmal vertigo, bilateral (principal); E55.9 Vitamin D deficiency, unspecified; F33.41 Major depressive disorder, recurrent, in partial remission | CPT/HCPCS: 99212 ==

== ENCOUNTER 2024-07-21 13:49 | Outpatient (AMB) | payer OTHER, SELFPAY ==
--- OUTSIDE RECORDS SUMMARY | 2024-07-21 13:53 | XMS_ITS | Clinical Summary ---
Author Organization [facility] Address [address] [place], [place] [address] Phone Care Team Providers Care Emergency Management Coordinator Name Role Phone Unavailable Primary Care Provider Unavailabl e Immunizations Name Administration Dates Next Due DTP 06/09/2001, 8,1996,09/18,1996 H1N1 06/26/2009 HPV, Quadrivalent 09/28/2008,05/30/2008,01/11/20 08 Hep A, ped/adol 02/13/2014,11/12/2010 Hep B, ped/adol 05/01/1997,1996 Hib (PRP-T) 08/03/1997, 7,1996,07/27 IPV 06/09/2001 Influenza Split 03/10/2012,02/26/2011 Influenza, injectable, quadr ivalent, preservative free 05/11/2016,03/19/2015,03/31/2013 Influenza, injectable, trivalent 06/26/2009,05/21,06/30/2007 Influenza, intranasal, quadrivalent 04/09/2014 Influenza, intranasal, trivalent 04/07/2010 MMR 04/01/2000,05/01/1997 Meningococcal Conj (Menactra) MCV4P 05/11/2016,0 01/30/2009 OPV 1996,1996,1996 Tdap 01/30/2009 Varicella 01/11/2008,10/11/1997 Family History Relation Name Status Comments Brother Brother: ADD/AD HD Father Alive Father: Alive a nd well Maternal Grandmother Materna l grandmother: Cancer, breast, Cancer, colon Mother Alive Mother: Alive a nd well Other Family history of Migraines, Family history of Schizophrenia, Family history of Seizure disorder, No family history of Hyperlipidemia, No family history of Strabismus, No family history of Developmental dislocation of hip, Family history of Sudden /DC under 55, Family history of Deafness, Family history of Diabetes mellitus, Family history of Asthma, Family history of Obesity, Family history of ADD/ADHD, Family history of Cancer, breast Sister Alive Sister: Alive a nd well, ADD/ADHD Social History Tobacco Use Types Packs/Day Years Used Date Smoking Tobacco: Light Smoker Comments:Light tobacco smoke r Comments Unknown Sex and Gender Information Value Date Recorded Sex Assigned at Not on file Legal Sex Female 5:14 PM EDT Gender Identity Not on file Sexual Orientation Not on file Last Filed Vital Signs Vital Sign Reading Time Taken Comments Blood Pressure 101/67 05/11/2016 12:00 AM EST Pulse 86 05/11/2016 12:00 AM EST Temperature 37.7 ??C (99.9 ??F) 03/19/2015 12:00 AM E DT Respiratory Rate - - Oxygen Saturation - - Inhaled Oxygen Concentration - - Weight 37.4 kg (82 lb 8 oz) 05/11/2016 12:00 AM EST Height 156.2 cm (5' 1.5 ) 05/11/2016 12:00 AM ES T Body Mass Index 15.34 05/11/2016 12:00 AM EST Plan of Treatment Health Maintenance Due Date Last Done Comments Hepatitis B Vaccines (3 of 3 - 3-dose series) 06/26/1997 05/01/1997, 1996 DTaP,Tdap,and Td Vaccines (7 - Td or Tdap) 01/30/2019 01/30/2009, 06/09/2001, 10/11/1997, Additional history exists Influenza Vaccines (#1) 2024 05/11/20 16, 03/19/2015, 04/09/2014, Additional history exists COVID-19 Vaccine ( season) 2024 HIB Vaccines Completed 08/03/1997, 09/20, 1996, Additional history exists MMR Vaccines Completed 04/01/2000, 05/01/1997 IPV Vaccines Completed 06/09/2001, 09/20, 1996, Additional history exists Varicella Vaccines Completed 01/11/2008, 10/11/1997 HPV Vaccines Completed 09/28/2008, 05/21, 01/11/2008 Hepatitis A Vaccines Completed 02/13/2014, 11/13/19 11 Meningococcal Vaccine Aged Out 05/11/2016, 009 No longer eligible based on patient's age to complete this topic Men B Vaccine Aged Out No longer elig ible based on patient's age to complete this topic Pneumococcal Vaccine Aged Out No long er eligible based on patient's age to complete this topic Procedures * Due to [place] law, this organization might not be sharing sensitive test results. Procedure Name Priority Date/Time Associated Diagnosis Comments CHLAMYDIA AND GONORRHEA, AMPLIFIED Routine 05/12/2016 1:05 PM EST from Last 3 Months or Most Recently Relevant to Health Maintenance Results * Due to [place] law, this organization might not be sharing sensitive test results. * Chlamydia and Gonorrhoea, Amplified (05/12/2016 1:05 PM EST) URINE CHLAMYDIA AMP PROBE NEGATIVE [facility] Comment: No Chlamydia Trachomatis RNA detected in this patient's sample (REFERENCE RANGE/NORMAL VALUE: NOT DETECTED) URINE GC AMP PROBE NEGATIVE [facility] Comment: No Neisseria Gonorrhoeae RNA detected in this patient's sample (REFERENCE RANGE/NORMAL VALUE: NOT DETECTED) NOTE: This test uses baseball inspector-mediated amplification method to detect rRNA from C.Trachomatis and N.Gonorrhoeae. A negative result does not preclude infection. In the case of a negative urine result, testing of an endocervical(female) or urethral(male) specimen is recommended if there is high clinical suspicion of infection. The performance characteristics of this test have not been evaluated in children. The Aptima Combo2 assay is not intended for the evaluation of suspected sexual abuse or for other medico-legal indications. The ordering provider should assess if the patient had consensual sex without risk of sexual abuse. Consult the [facility] if needed. Contact phone number . Therapeutic failure or success cannot be determined with the Aptima Combo2 assay since nucleic acid may persist following appropriate antimicrobial therapy. The Centers for Disease Control and Prevention (CDC) recommends confirmatory retesting using culture or a different nucleic acid amplification test when positive results occur, if indicated. Testing performed or reported by [facility], a Service of [facility], [address] [place] [address] CLIA ??[id number] Joselo Haq MD, PhD, Impregnating Tank Operator 05/12/2016 1:05 PM EST Narrative [facility] - 05/12/2016 1:05 PM EST URINE CHLAMYDIA GC AMP PROBE us Jassi Ambrocio MD LAB MICROBIOLOGY - GENERAL ORD ERABLES Final Result [facility] [address] [place] [id number], [place] from Last 3 Months or Most Recently Relevant to Health Maintenance
--- OUTSIDE RECORDS SUMMARY | 2024-07-21 13:53 | XMS_ITS | Encounter Summary ---
Author Organization [facility] Address [address] [place] [id number] Phone Care Team Providers Care Strip Feeder Name Role Phone Jassi Ambrocio MD Primary Care Provider [phone] Encounter Details Date Type Department Care Team (Late st Contact Info) Description 12/11/2016 Documentation EM Family Medicine [address] [place] [address] Family Medicine, Physician [address] [place], [place] [id number] Social History Tobacco Use Types Packs/Day Years Used Date Smoking Tobacco: Light Smoker Comments:Light tobacco smoke r Comments Unknown Sex and Gender Information Value Date Recorded Sex Assigned at Not on file Legal Sex Female 5:14 PM EDT Gender Identity Not on file Sexual Orientation Not on file documented as of this encounter Plan of Treatment Not on file documented as of this encounter Visit Diagnoses Not on filedocumented in this encounter Care Teams Strip Feeder Relationship Specialty Start Date End Date Jassi Ambrocio MD [address] [place], [place] [address] [id number] PCP - General 01/29/17 09/02/22 documented as of this encounter
--- OUTSIDE RECORDS SUMMARY | 2024-07-21 13:53 | XMS_ITS | Encounter Summary ---
Author Organization [facility] Address [address] [place] [id number] Phone Care Team Providers Care Line Maintenance Name Role Phone Jassi Ambrocio MD Primary Care Provider [phone] Encounter Details Date Type Department Care Team (Late st Contact Info) Description 02/04/2017 Conversion Encounter [facility] [place] [address] [place] [address] Social History Tobacco Use Types Packs/Day Years [...] on filedocumented in this encounter Care Teams Line Maintenance Relationship Specialty Start Date End Date Jassi Ambrocio MD [address] [place] [address] PCP - General 01/29/17 09/02/22 documented as of this encounter
--- OUTSIDE RECORDS SUMMARY | 2024-07-21 13:53 | XMS_ITS | Encounter Summary ---
Author Organization [facility] Address [address] [place] [address] Phone Care Team Providers Care Artificial Cherry Maker Name Role Phone Jassi Ambrocio MD Primary Care Provider Encounter Details Date Type Department Care Team (Late st Contact Info) Description 06/30/2012 Documentation EM Family Medicine [address] [place] [address] Family Medicine, Physician [address] [place], [place] [phone] Social History Tobacco Use Types Packs/Day Years Used Date Smoking Tobacco: Never Assessed Comments Unknown Sex and Gender Information Value Date Recorded Sex Assigned at Not on file Legal Sex Female 5:14 PM EDT Gender Identity Not on file Sexual Orientation Not on file documented as of this encounter Plan of Treatment Not on file documented as of this encounter Visit Diagnoses Not on filedocumented in this encounter Care Teams Artificial Cherry Maker Relationship Specialty Start Date End Date Jassi Ambrocio MD [address] [place] [address] [place] [address] PCP - General 01/29/17 09/02/22 documented as of this encounter
[2024-07-21 13:54] VITALS: BP 128/80; PULSE 98; TEMP 36.9; O2SAT 98; BMI 21.3
--- NOTE | 2024-07-21 13:54 | MHC.PC.OV ---
Vital Signs 07/21/24 13:54 Height 5 ft 1 in Weight 113 lb BMI 21.3 BP 128/80 Blood Pressure Location Rt brachial Position Sitting Pulse 98 Pulse Source Pulse Oximeter Temp 98.5 F Temp Source Oral Pulse Oximetry (%) 98 Oxygen Delivery Method Room Air Intake Visit Reasons: vaginal dryness Allergies No Known Allergies [No Known Allergies*] Allergy (Verified 07/21/24 14:02) Medication List - Last Reconciled 07/21/24 by Joy Simpson MD cholecalciferol (vitamin D3) 25 mcg PO DAILY 90 days meclizine 25 mg PO TID PRN 30 days Tobacco use date assessed: 07/21/24 Dental Screening Dental Screen Date: 07/21/24 Did you have a dental visit in the last 12 months?: Yes Did you have a dental problem in the last 6 months where you did not have access to dental care?: No Was dental information given to patient?: Patient has dentist HPI vaginal dryness HPI Details Patient is 29-year-old female came in today for an acute problem Having little bit of sore throat since morning on examination there is no erythema noted Patient was instructed to start gargling with warm water and tsp of salt If symptoms progressed get back to me Also complaining of vaginal itching she has seen her OBGYN for that Patient says that itching has been happening for a year OBGYN has not found anything to treat They have recommended that she sees a income tax consultant On examination today she is pointing more to were anal area Patient does have small hemorrhoids, she is having 1 or 2 bowel movement a week And she has to strain I am treating her with Senokot S tablet 1 at night until her bowel pattern regulates and then she can take 1 or 2 a week I have also sent hydroxyzine 25 mg tablets to be taken at night for itching And Dermatology consultation request has been placed Follow-up 3 weeks [facility] Medical History Stomach acid Family History Maternal Grandmother Diabetes Cancer of breast Father Diabetes HTN (hypertension) Obesity Sister Microcephalic Social History Household Members: Significant Other and Other Household Members Other:: Significant other's mother Housing: Apartment Are you a primary care trainer to a significant other at home: No Do you presently have visiting nurse or other home services: No Alcohol intake: former Patient Tobacco Use Status: Former Tobacco user e-Cigarette/Vaping Use: Never Used Substance Use Type: Marijuana service: No Current occupational status: unemployed Gender identity: Female Cognitive needs: No Hearing needs: No Vision needs: No Female Reproductive History Menstrual Age of Menarche: 14 Questionnaire PHQ-9 Over the last 2 weeks, how often have you been bothered by any of the following problems? 1. Little interest or pleasure in doing things: several days 2. Feeling down, depressed, or hopeless: several days 3. Trouble falling or staying asleep, or sleeping too much: more than half the days 4. Feeling tired or having little energy: nearly every day 5. Poor appetite or overeating: several days 6. Feeling bad about yourself - or that you are a failure or have let yourself or your family down: nearly every day 7. Trouble concentrating on things, such as reading the newspaper or watching television: several days 8. Moving or speaking so slowly that other people could have noticed. Or the opposite - being so fidgety or restless that you have been moving around a lot more than usual: several days 9. Thoughts that you would be better off or of hurting yourself in some way: several days Total score: 14 Depression Screening Interpretation: Positive Depression Screening Follow-up: Community Mental Health Worker F/U Depression Screening Done: Yes 09171 - PHQ-9 Billing: Yes Source: Developed by Drs. Gerard Chandler, Elizabet Horner, Stephon Craig and colleagues, with an educational chintan from [employer]. Thrive Questionnaire Date Thrive assessed: 07/21/24 I am a: Patient What is your living situation today?: I have a steady place to live Within the past 12 months, did the food you bought not last and you didn't have the money to get more?: Never true Within the past 12 months, did you worry whether your food would run out before you got money to buy more?: Never true Do you have trouble paying for medicines?: Yes Do you have trouble getting transportation to medical appointments?: Yes Do you have trouble paying your heating and electricity bill?: Yes Do you have trouble taking care of your child, family member or friend?: No Do you have trouble with day-to-day activities such as bathing, preparing meals, shopping, managing finances, etc.?: No Are you currently unemployed and looking for a job?: Yes Are you interested in more education?: No Please select the resources that you would like help with: Paying for medicine, Transportation, Utilities and Childcare Currently or been in a relationship where the following occur: No concerns reported THRIVE Score: 2 AUDIT C Alcohol Use Questionnaire (AUDIT-C) 1. How often do you have a drink containing alcohol?: 4 or more times a week 2. How many drinks containing alcohol do you have on a typical day when you are drinking?: 1 or 2 3. How often do you have six or more drinks on one occasion?: Never Total Score: 4 Score Reviewed/Action Taken: Yes BRODIE-7 AMB Questionnaire BRODIE-7 Date BRODIE - 7 assessed: 07/21/24 Feeling nervous, anxious, or on edge: 1 = Several days Not being able to stop or control worryin = More than half the days Worrying too much about different things: 1 = Several days Trouble relaxin = Several days Being so restless that it is hard to sit still: 1 = Several days Becoming easily annoyed or irritable: 1 = Several days Feeling afraid as if something awful might happen: 1 = Several days Total BRODIE-7 score (0-4 normal; 5-9 mild; 10-14 moderate; 15-21 severe): 8 Source: Developed by Drs. Gerard Chandler, Elizabet Horner, Stephon Craig and colleagues, with an educational chintan from [employer]. BRODIE-7 Assessment Billing BRODIE-7 Assessment Tool: BRODIE-7 Assessment 14435 Review of Systems Const Denies chills and Denies fever(s) ENT Denies epistaxis and Denies nasal discharge Card Denies chest pain Resp Denies chest congestion and Denies hemoptysis GI Denies diarrhea and Denies nausea Skin/Breast Denies rash Neuro Reports no additional complaints Psych Reports no additional complaints Endo Reports no additional complaints Physical exam (Primary Care) Vital Signs: Last Vital Signs Temp 98.5 F 07/21/24 13:54 Pulse 98 07/21/24 13:54 BP 128/80 07/21/24 13:54 Pulse Ox 98 07/21/24 13:54 Oxygen Delivery Method Room Air 07/21/24 13:54 BMI result Body Mass Index 21.3 Tobacco/Smoking Status: Tobacco use Status Tobacco use date assessed 07/21/24 07/21/24 14:04 Patient Tobacco Use Status Former Tobacco user 07/21/24 14:00 e-Cigarette/Vaping Use Never Used 07/21/24 14:00 PHQ-9: PHQ-9 Score PHQ-9: Total score 14 07/21/24 14:04 Depression Screening Interpretation: Positive Depression Screening Follow-up: Community Mental Health Worker F/U Thrive Assessment: Date of Thrive Assessment Date Thrive assessed 07/21/24 07/21/24 14:04 Currently or been in a relationship where the following occur: No concerns reported Const General: cooperative, comfortable and no acute distress Orientation/consciousness: patient oriented x3 HENMT Head: Yes normocephalic Eyes General: appearance normal, both eyes and all related structures Neck Neck: Yes supple Resp Effort & Inspection: normal respiratory effort, no cough and no stridor Female genitals images: 1. First-degree hemorrhoids without any rash, patient is pointing in that area for pruritus Skin General skin exam: turgor normal Neuro General: patient oriented x3, tone normal and moves all extremities Extrem Right lower extremity: no edema Left lower extremity: no edema Coding Level of Care Code Est Pt Level 4 (11508) Diagnoses Constipation by delayed colonic transit K59.01 Grade I hemorrhoids K64.0 Hemorrhoid type: first degree Anal itching L29.0 Sore throat J02.9 Positive depression screening Z13.31 Additional Codes BRODIE-7 Assessment Billing - BRODIE-7 Assessment Tool: BRODIE-7 Assessment 45036 ([id number]) PHQ-9 - 61470 - PHQ-9 Billing: Yes ([id number]) Assessment & Plan Assessment & Plan (1) Constipation by delayed colonic transit: Code(s): K59.01 - Slow transit constipation Category: Medical (2) Hemorrhoids: Code(s): K64.9 - Unspecified hemorrhoids Category: Medical Qualifiers: Hemorrhoid type: first degree Qualified Code(s): K64.0 - First degree hemorrhoids (3) Anal itching: Code(s): L29.0 - Pruritus ani Category: Medical (4) Sore throat: Code(s): J02.9 - Acute pharyngitis, unspecified Category: Medical (5) Positive depression screening: Code(s): Z13.31 - Encounter for screening for depression Category: Medical Plan Patient is 29-year-old female came in today for an acute problem Having little bit of sore throat since morning on examination there is no erythema noted Patient was instructed to start gargling with warm water and tsp of salt If symptoms progressed get back to me Also complaining of vaginal itching she has seen her OBGYN for that Patient says that itching has been happening for a year OBGYN has not found anything to treat They have recommended that she sees a income tax consultant On examination today she is pointing more to were anal area Patient does have small hemorrhoids, she is having 1 or 2 bowel movement a week And she has to strain I am treating her with Senokot S tablet 1 at night until her bowel pattern regulates and then she can take 1 or 2 a week I have also sent hydroxyzine 25 mg tablets to be taken at night for itching Confirmed with patient she is not she just finished her menstrual cycle And Dermatology consultation request has been placed Follow-up 3 weeks Medications: New hydroxyzine HCl 25 mg PO BEDTIME 30 tabs 0RF sennosides-docusate sodium 8.6-50 mg (Senokot-S) 1 tab-cap PO BEDTIME 90 days 90 tabs 0RF Constipation
== END 2024-07-21 14:15 | disposition home or self-care (01) ==
PROVIDERS: PCP Internal Medicine; Visit Provider Internal Medicine
DX: K59.01 Slow transit constipation (principal); K64.0 First degree hemorrhoids; L29.0 Pruritus ani; J02.9 Acute pharyngitis, unspecified; Z13.31 Encounter for screening for depression; Z13.9 Encounter for screening, unspecified

== ENCOUNTER → 2024-07-21 13:49 | Outpatient (BNVA) | payer OTHER, SELFPAY | PROVIDERS: PCP Internal Medicine; Visit Provider Internal Medicine | DX: K59.01 Slow transit constipation (principal); K64.0 First degree hemorrhoids; L29.0 Pruritus ani; J02.9 Acute pharyngitis, unspecified | CPT/HCPCS: 81003; 96127; 99212 ==

== ENCOUNTER 2024-07-21 15:56 | Outpatient (REF) | payer OTHER, SELFPAY ==
--- OUTSIDE RECORDS SUMMARY | 2024-07-21 15:57 | XMS_ITS | Encounter Summary ---
Author Organization [facility] Address [address] [place] [address] Phone Care Team Providers Care Fishing Line Winding Machine Operator Name Role Phone Jassi Ambrocio MD Primary Care Provider [phone] Encounter Details Date Type Department Care Team (Late st Contact Info) Description 02/04/2017 Conversion Encounter [facility] [place] [address] [place] [address] Social History Tobacco Use Types Packs/Day Years [...] on filedocumented in this encounter Care Teams Fishing Line Winding Machine Operator Relationship Specialty Start Date End Date Jassi Ambrocio MD [address] [place] [address] PCP - General 01/29/17 09/02/22 documented as of this encounter
--- OUTSIDE RECORDS SUMMARY | 2024-07-21 15:57 | XMS_ITS | Encounter Summary ---
Author Organization [facility] Address [address] [place] [address] Phone Care Team Providers Care Mva Still Operator Name Role Phone Jassi Ambrocio MD Primary Care Provider Encounter Details Date Type Department Care Team (Late st Contact Info) Description 12/11/2016 Documentation EM Family Medicine [address] [place] [address] Family Medicine, Physician [address] [place], [place] [phone] Social History Tobacco Use Types Packs/Day Years [...] on filedocumented in this encounter Care Teams Mva Still Operator Relationship Specialty Start Date End Date Jassi Ambrocio MD [address] [place], [place] [address]O [address] PCP - General 01/29/17 09/02/22 documented as of this encounter
--- OUTSIDE RECORDS SUMMARY | 2024-07-21 15:58 | XMS_ITS | Encounter Summary ---
Author Organization [facility] Address [address] [place] [address] Phone Care Team Providers Care Gas Distribution And Emergency Clerk Name Role Phone Jassi Ambrocio MD Primary Care Provider [phone] Encounter Details Date Type Department Care Team (Late st Contact Info) Description 06/30/2012 Documentation EM Family Medicine [address] [place] [address] Family Medicine, Physician [address] [place], [place] [phone] Social History Tobacco Use Types Packs/Day Years [...] on filedocumented in this encounter Care Teams Gas Distribution And Emergency Clerk Relationship Specialty Start Date End Date Jassi Ambrocio MD [address] [place] [address] [place] [address] PCP - General 01/29/17 09/02/22 documented as of this encounter
--- OUTSIDE RECORDS SUMMARY | 2024-07-21 15:58 | XMS_ITS | Clinical Summary ---
Author Organization [facility] Address [address] [place], [place] [phone] Phone Care Team Providers Care Irish Moss Bleacher Name Role Phone Unavailable Primary Care Provider [...] dislocation of hip, Family history of Sudden /IA under 55, Family history of Deafness, Family [...] complete this topic Procedures * Due to [place] law, this organization might not be sharing sensitive test results. Procedure Name Priority Date/Time Associated Diagnosis Comments CHLAMYDIA AND GONORRHEA, AMPLIFIED Routine 05/12/2016 1:05 PM EST from Last 3 Months or Most Recently Relevant to Health Maintenance Results * Due to [place] law, this organization might not be sharing sensitive test results. * Chlamydia and Gonorrhoea, Amplified (05/12/2016 1:05 PM EST) URINE CHLAMYDIA AMP PROBE NEGATIVE [facility] Comment: No Chlamydia Trachomatis RNA detected in this patient's sample (REFERENCE RANGE/NORMAL VALUE: NOT DETECTED) URINE GC AMP PROBE NEGATIVE [facility] Comment: No Neisseria Gonorrhoeae RNA detected in this patient's sample (REFERENCE RANGE/NORMAL VALUE: NOT DETECTED) NOTE: This test uses mobile practice lead-mediated amplification method to detect rRNA from C.Trachomatis [...] without risk of sexual abuse. Consult the [facility] if needed. Contact phone number . Therapeutic failure or success cannot be determined with the Aptima Combo2 assay since nucleic acid may persist following appropriate antimicrobial therapy. The Centers for Disease Control and Prevention (CDC) recommends confirmatory retesting using culture or a different nucleic acid amplification test when positive results occur, if indicated. Testing performed or reported by [facility], a Service of [facility], [address] [place] [address] CLIA ??[id number] Joselo Haq MD, PhD, Shopfitter 05/12/2016 1:05 PM EST Narrative [facility] - 05/12/2016 1:05 PM EST URINE CHLAMYDIA GC AMP PROBE us Jassi Ambrocio MD LAB MICROBIOLOGY - GENERAL ORD ERABLES Final Result [facility] [address] [place] [address], [place] from Last 3 Months or Most Recently Relevant to Health Maintenance
[2024-07-21 16:09] LABS: Appearance Urine Turbid; Color Urine Yellow; Glucose Urine UA Negative (Negative); Leukocyte Esterase Urine Negative (Negative); Nitrite Urine Negative (Negative); Specific Gravity - Urine >= 1.030 (1.005-1.025); UMIC TRIGGER UACC YES; Urine Blood Negative (Negative); Urine Ketones 40 mg/dL (Negative); Urine Protein 30 (1+) mg/dL (Neg-Trace)
[2024-07-21 16:21] LABS: Bacteria Urine None Seen (None Seen); Hyaline Casts Urine 0-2 /LPF (0-2); RBC Urine 0-2 /HPF (0-2); UACC Culture Trigger YES
== END 2024-07-21 15:57 | disposition home or self-care (01) ==
LOC: HO.LNP 15:56
PROVIDERS: Visit Provider Internal Medicine
DX: R80.9 Proteinuria, unspecified (principal); R82.90 Unspecified abnormal findings in urine
CPT/HCPCS: 81001; 81003; 87086

== ENCOUNTER 2024-09-26 09:13 | Outpatient (AMB) | payer OTHER, SELFPAY ==
--- NOTE | 2024-09-26 09:14 | A.OFFPC_ITS ---
Vital Signs 09/26/24 09:15 Height 5 ft 1 in Weight 111 lb BMI 21.0 BP 110/72 Blood Pressure Location Rt brachial Position Sitting Respiration 16 Pulse 75 Pulse Source Pulse Oximeter Temp 98.0 F Temp Source Oral Pulse Oximetry (%) 97 Oxygen Delivery Method Room Air Intake Visit Reasons: Referral -Derm. Allergies No Known Allergies [No Known Allergies*] Allergy (Verified 09/26/24 09:16) Medication List - Last Reconciled 09/26/24 by Joy Simpson MD cholecalciferol (vitamin D3) 25 mcg PO DAILY 90 days hydroxyzine HCl 25 mg PO BEDTIME sennosides-docusate sodium 8.6-50 mg (Senokot-S) 1 tab-cap PO BEDTIME 90 days Tobacco use date assessed: 09/26/24 Dental Screening Dental Screen Date: 09/26/24 Did you have a dental visit in the last 12 months?: Yes Did you have a dental problem in the last 6 months where you did not have access to dental care?: No Was dental information given to patient?: Patient has dentist HPI Referral -Derm. HPI Details History - The patient is a 29-year-old female pr esenting with vaginal pruritus experienced for one year, characterized by a persistent itch that causes s ignificant discomfort both day and night. - Previous empirical treatments, includi ng dlux-kqe-uwslnma remedies and a topical cream provided by midwives, were ineffective. - The patient has not yet consulted with a leather craftsman for this condition but has reported negative testing for yeast, bacterial vaginosis, and sexually transmitted diseases. - The patient also reports a pre-existin g condition of Polycystic Ovary Syndrome (PCOS), although it is acknowledged that PCOS does not cause itching. Problem List - Vaginal Pruritus - Polycystic Ovary Syndrome (PCOS) Patient Instructions - patient declined treatment with Difluc an and nystatin cream. - instead she want a referral to a client retention specialist and a leather craftsman which was placed She also wanted test which came back negative Review of Systems - General: No fever no chills - Neurological: No headaches no dizziness - Ear nose throat: No sore throat no hearing difficulty no ear pain - Cardiovascular: No syncope, no chest pain, no palpitations - Gastrointestinal: No nausea vomiting or diarrhea - Endocrine: No polyuria polydipsia no heat intolerance - Genitourinary: No dysuria , no blood in urine Physical Exam General: No acute distress HEENT: No acute findings Neck: Supple Respiratory system: Able to talk in full sentences, no audible wheeze Cardiovascular: S1-S2 regular in rate and rhythm Gastrointestinal: No pain Genital examination reveals slight amount of white discharge Extremities: No new findings BOTTLING LINE ATTENDANT: Alert awake oriented x3 motor sensory intact Skin: Yeast infection noted, patient reports itching, especially at night PFSH Medical History Stomach acid Family History Maternal Grandmother Diabetes Cancer of breast Father Diabetes HTN (hypertension) Obesity Sister Microcephalic Social History Household Members: Significant Other and Other Household Members Other:: Significant other's mother Housing: Apartment Are you a primary care navigator to a significant other at home: No Do you presently have visiting nurse or other home services: No Alcohol intake: former Patient Tobacco Use Status: Former Tobacco user e-Cigarette/Vaping Use: Never Used Substance Use Type: Marijuana service: No Current occupational status: unemployed Gender identity: Female Cognitive needs: No Hearing needs: No Vision needs: No Female Reproductive History Menstrual Age of Menarche: 14 Questionnaire Thrive Questionnaire Date Thrive assessed: 07/21/24 BRODIE-7 AMB Questionnaire BRODIE-7 Date BRODIE - 7 assessed: 07/21/24 Source: Developed by Drs. Gerard Chandler, Elizabet Horner, Stephon Craig and colleagues, with an educational chintan from [employer]. Physical exam (Primary Care) Vital Signs: Last Vital Signs Temp 98.0 F 09/26/24 09:15 Pulse 75 09/26/24 09:15 Resp 16 09/26/24 09:15 BP 110/72 09/26/24 09:15 Pulse Ox 97 09/26/24 09:15 Oxygen Delivery Method Room Air 09/26/24 09:15 BMI result Body Mass Index 21.0 Tobacco/Smoking Status: Tobacco use Status Tobacco use date assessed 09/26/24 09/26/24 09:16 Patient Tobacco Use Status Former Tobacco user 09/26/24 09:16 e-Cigarette/Vaping Use Never Used 09/26/24 09:16 Thrive Assessment: Date of Thrive Assessment Date Thrive assessed 07/21/24 09/26/24 09:16 Results AMB Test Urine AMB Test Urine Negative Last Edit by RUDY Iyer on 09/26/24 09:54 Results Reviewed Results Reviewed: Laboratory Last Values [facility] Negative 09/26/24 09:48 Coding Level of Care Code Est Pt Level 3 (20699) Diagnoses Vaginal itching N89.8 Assessment & Plan Assessment & Plan (1) Vaginal itching: Code(s): N89.8 - Other specified noninflammatory disorders of vagina Category: Medical Plan History - The patient is a 29-year-old female presenting with vaginal pruritus experienced for one year, characterized by a persistent itch that causes significant discomfort both day and night. - Previous empirical treatments, including jzuf-dqh-nnoxckm remedies and a topical cream provided by midwives, were ineffective. - The patient has not yet consulted with a leather craftsman for this condition but has reported negative testing for yeast, bacterial vaginosis, and sexually transmitted diseases. - The patient also reports a pre-existing condition of Polycystic Ovary Syndrome (PCOS), although it is acknowledged that PCOS does not cause itching. Problem List - Vaginal Pruritus - Polycystic Ovary Syndrome (PCOS) Patient Instructions - patient declined treatment with Diflucan and nystatin cream. - instead she want a referral to a client retention specialist and a leather craftsman which was placed She also wanted test which came back negative Orders: Orders AMB HCG Urine Test Today N64.4 - Mastodynia, N89.8 - Other specified noninflammatory disorders of vagina, Z32.01 - Encounter for test, result positive Referrals Dermatology Referral N89.8 - Other specified noninflammatory disorders of vagina LADIES UNDERWEAR OPERATOR Referral N89.8 - Other specified noninflammatory disorders of vagina, Z01.419 - Encounter for gynecological examination (general) (routine) without abnormal findings
[2024-09-26 09:15] VITALS: BP 110/72; PULSE 75; RESP 16; TEMP 36.7; O2SAT 97; BMI 21.0
--- OUTSIDE RECORDS SUMMARY | 2024-09-26 10:10 | XMS_ITS | Encounter Summary ---
Author Organization [facility] Address [address] [place] [address] Phone Care Team Providers Care Communication Lecturer Name Role Phone Jassi Ambrocio MD Primary Care Provider [phone] Encounter Details Date Type Department Care Team (Late st Contact Info) Description 06/30/2012 Documentation EM Family Medicine [address] [place] [address] Family Medicine, Physician [address] [place], [place] [phone] Social History Tobacco Use Types Packs/Day Years [...] on filedocumented in this encounter Care Teams Communication Lecturer Relationship Specialty Start Date End Date Jassi Ambrocio MD [address] [place] [address] [place] [address] PCP - General 01/29/17 09/02/22 documented as of this encounter
--- OUTSIDE RECORDS SUMMARY | 2024-09-26 10:10 | XMS_ITS | Encounter Summary ---
Author Organization [facility] Address [address] [place] [address] Phone Care Team Providers Care Supervisor Rose Grading Name Role Phone Jassi Ambrocio MD Primary Care Provider [phone] Encounter Details Date Type Department Care Team (Late st Contact Info) Description 02/04/2017 Conversion Encounter [facility] [place] [address] [place] [address] Social History Tobacco Use Types Packs/Day Years [...] on filedocumented in this encounter Care Teams Supervisor Rose Grading Relationship Specialty Start Date End Date Jassi Ambrocio MD [address] [place] [address] PCP - General 01/29/17 09/02/22 documented as of this encounter
--- OUTSIDE RECORDS SUMMARY | 2024-09-26 10:10 | XMS_ITS | Encounter Summary ---
Author Organization [facility] Address [address] [place] [address] Phone Care Team Providers Care Pond Tender Name Role Phone Jassi Ambrocio MD Primary Care Provider [phone] Encounter Details Date Type Department Care Team (Late st Contact Info) Description 12/11/2016 Documentation EM Family Medicine [address] [place] [address] Family Medicine, Physician [address] [place], [place] [phone] Social History Tobacco Use Types Packs/Day Years [...] on filedocumented in this encounter Care Teams Pond Tender Relationship Specialty Start Date End Date Jassi Ambrocio MD [address] [place], [place] [address] [address] PCP - General 01/29/17 09/02/22 documented as of this encounter
--- OUTSIDE RECORDS SUMMARY | 2024-09-26 10:10 | XMS_ITS | Clinical Summary ---
Author Organization [facility] Address [address] [place], [place] [id number] Phone Care Team Providers Care Roll Line Operator Name Role Phone Unavailable Primary Care Provider Unavailabl e Immunizations Immunization Administration Dates Next Due DTP 06/09/2001, 8,1996,09/18,1996 [...] dislocation of hip, Family history of Sudden /[place] under 55, Family history of Deafness, Family [...] complete this topic Procedures * Due to [place] [employer] law, this organization might not be sharing sensitive test results. Procedure Name Priority Date/Time Associated Diagnosis Comments CHLAMYDIA AND GONORRHEA, AMPLIFIED Routine 05/12/2016 1:05 PM EST from Last 3 Months or Most Recently Relevant to Health Maintenance Results * Due to [place] [facility] law, this organization might not be sharing sensitive test results. * Chlamydia and Gonorrhoea, Amplified (05/12/2016 1:05 PM EST) URINE CHLAMYDIA AMP PROBE NEGATIVE [facility] Comment: No Chlamydia Trachomatis RNA detected in this patient's sample (REFERENCE RANGE/NORMAL VALUE: NOT DETECTED) URINE GC AMP PROBE NEGATIVE [facility] Comment: No Neisseria Gonorrhoeae RNA detected in this patient's sample (REFERENCE RANGE/NORMAL VALUE: NOT DETECTED) NOTE: This test uses shell sorter-mediated amplification method to detect rRNA from C.Trachomatis [...] without risk of sexual abuse. Consult the [facility] if needed. Contact phone number . Therapeutic failure or success cannot be determined with the Aptima Combo2 assay since nucleic acid may persist following appropriate antimicrobial therapy. The Centers for Disease Control and Prevention (CDC) recommends confirmatory retesting using culture or a different nucleic acid amplification test when positive results occur, if indicated. Testing performed or reported by [facility], a Service of [facility], [address] [place] [address] CLIA ??[id number] Joselo Haq MD, PhD, Handling Tech 05/12/2016 1:05 PM EST Narrative [facility] - 05/12/2016 1:05 PM EST URINE CHLAMYDIA GC AMP PROBE us Jassi Ambrocio MD LAB MICROBIOLOGY - GENERAL ORD ERABLES Final Result [facility] [address] [place] [address], [place] from Last 3 Months or Most Recently Relevant to Health Maintenance
== END 2024-09-26 10:07 | disposition home or self-care (01) ==
LOC: HO.HMCC 09:13
PROVIDERS: PCP Internal Medicine; Visit Provider Internal Medicine
DX: Z32.01 Encounter for pregnancy test, result positive (principal); N89.8 Other specified noninflammatory disorders of vagina; N64.4 Mastodynia

== ENCOUNTER → 2024-09-26 09:13 | Outpatient (BNVA) | payer OTHER, SELFPAY | PROVIDERS: PCP Internal Medicine; Visit Provider Internal Medicine | DX: L29.89 Other pruritus (principal); E28.2 Polycystic ovarian syndrome | CPT/HCPCS: 81025; 99212 ==

== ENCOUNTER 2025-01-11 10:40 | Outpatient (AMB) | payer OTHER, SELFPAY ==
[2025-01-11 11:13] VITALS: BP 116/72; PULSE 77; TEMP 36.7; O2SAT 98; BMI 18.9
--- NOTE | 2025-01-11 11:13 | AM.OFFWIN_ITS ---
Intake Vital Signs 01/11/25 11:13 Height 5 ft 1 in Weight 100 lb BMI 18.9 BP 116/72 Blood Pressure Location Rt brachial Position Sitting Pulse 77 Pulse Source Pulse Oximeter Temp 98.1 F Temp Source Oral Pulse Oximetry (%) 98 Oxygen Delivery Method Room Air Intake Visit Reasons: EP-body bites Intake Note: presents with itchy rash on body throughout for weeks, son also with rash Patient Tobacco Use Status: Former Tobacco user Allergies No Known Allergies (No Known Allergies*) Allergy (Verified 01/11/25 11:16) HPI HPI Comments History of Present Illness Details History - The patient is a 29-year-old female pr esenting with itching due to suspected scabies infestation. - Reports pruritic papules all over her body, worsening at night. - Initially thought to be mosquito bites , later identified as scabies due to characteristic papules. - Her fgixo-murr-tcq son also shows anderson lar symptoms, suggesting household transmission. - No significant past medical history or previous infestations noted. Physical Exam General: Cooperative, healthy appearing, comfortable, no acute distress and well developed Orientation: Patient oriented x3 Limitations: No limitations Head: Normal to inspection Ears: Hearing grossly normal bilaterally Nose: Normal External nose present Face and sinus: Normal facial exam Mouth: normal, moist oral mucosa Eyes: Appearance normal, both eyes and all related structures Neck: Normal visual inspection and Yes full ROM Respiratory: Normal respiratory effort and able to speak in complete sentences. Skin: maculopapular rash on left upper posterior shoulder, left neck and posterior ear, right leg, on bilateral hands and feet Neuro: Patient oriented x3 Extremities: moving all extremities normally PFSH Medical History Stomach acid Family History Maternal Grandmother Diabetes Cancer of breast Father Diabetes HTN (hypertension) Obesity Sister Microcephalic Social History Household Members: Significant Other and Other Household Members Other:: Significant other's mother Housing: Apartment Are you a primary animal care supervisor to a significant other at home: No Do you presently have visiting nurse or other home services: No Alcohol intake: former Patient Tobacco Use Status: Former Tobacco user e-Cigarette/Vaping Use: Never Used Substance Use Type: Marijuana service: No Current occupational status: unemployed Gender identity: Female Cognitive needs: No Hearing needs: No Vision needs: No Female Reproductive History Menstrual Age of Menarche: 14 Review of Systems Const All systems reviewed & are unremarkable except as noted in HPI and below Physical Exam Vital Signs: Last Vital Signs Temp 98.1 F 01/11/25 11:13 Pulse 77 01/11/25 11:13 BP 116/72 01/11/25 11:13 Pulse Ox 98 01/11/25 11:13 Oxygen Delivery Method Room Air 01/11/25 11:13 BMI result Body Mass Index 18.9 Assessment & Plan Assessment & Plan (1) Scabies: Code(s): B86 - Scabies Plan: Plan Patient was informed and verbally consented to the use of an ambient scribe for clinic note documentation during this visit Scabies - Prescribed permethrin cream to be applied to the entire body and left on for 8 to 14 hours before washing off. - Advised to repeat the treatment in 14 days if symptoms persist. - Recommended thorough cleaning of household items, including washing and drying bedding and clothing at high temperatures. - Suggested contacting mill tender washing for similar treatment for her son. - Patient troubled by diagnosis and teary, STEVE Salguero, sit with patient to reassure her. Medications: New permethrin 5% Apply to affected areas, leave on for 8-14 hours then rinse off completely. Apply second treatment 14 days after first treatment if symptoms/mites persist. 1 appl topical Q14D 60 grams 0RF hydroxyzine HCl 25 mg PO BEDTIME 14 tabs 0RF Coding Level of Care Code Est Pt Level 3 (42601) Diagnoses Scabies B86
--- OUTSIDE RECORDS SUMMARY | 2025-01-11 11:31 | XMS_ITS | Encounter Summary ---
Author Organization [facility] Address [address] [place] [address] Phone Care Team Providers Care Lasting Room Supervisor Name Role Phone Jassi Ambrocio MD Primary Care Provider [phone] Encounter Details Date Type Department Care Team (Late st Contact Info) Description 12/11/2016 Documentation EM Family Medicine [address] [place] [address] Family Medicine, Physician [address] [place], [place] [phone] Social History Tobacco Use Types Packs/Day Years [...] on filedocumented in this encounter Care Teams Lasting Room Supervisor Relationship Specialty Start Date End Date Jassi Ambrocio MD [address] [place], [place] [address]R[place]ARDO [address] PCP - General 01/29/17 09/02/22 documented as of this encounter
== END 2025-01-11 12:44 | disposition home or self-care (01) ==
PROVIDERS: PCP Internal Medicine; Visit Provider Physician Assistant
DX: B86 Scabies (principal)

== ENCOUNTER → 2025-01-11 10:40 | Outpatient (BNVA) | payer OTHER, SELFPAY | PROVIDERS: PCP Internal Medicine; Visit Provider Physician Assistant | DX: B86 Scabies (principal) | CPT/HCPCS: 99212 ==

== ENCOUNTER 2025-01-19 15:04 | Outpatient (AMB) | payer OTHER, SELFPAY ==
--- OUTSIDE RECORDS SUMMARY | 2025-01-19 15:05 | XMS_ITS | Encounter Summary ---
Author Organization [facility] Address [address] [place] [address] Phone Care Team Providers Care Airport Maintenance Chief Name Role Phone Jassi Ambrocio MD Primary Care Provider [phone] Encounter Details Date Type Department Care Team (Late st Contact Info) Description 12/11/2016 Documentation EM Family Medicine [address] [place] [address] Family Medicine, Physician [address] [place], [place] [phone] Social History Tobacco Use Types Packs/Day Years [...] on filedocumented in this encounter Care Teams Airport Maintenance Chief Relationship Specialty Start Date End Date Jassi Ambrocio MD [address] [place], [place] [address]R[place] [address] PCP - General 01/29/17 09/02/22 documented as of this encounter
[2025-01-19 15:08] VITALS: BP 112/68; PULSE 79; TEMP 36.8; O2SAT 98; BMI 19.3
--- NOTE | 2025-01-19 15:08 | MHC.OFFWIV ---
Intake Vital Signs 01/19/25 15:08 Height 5 ft 1 in Weight 102 lb 2 oz BMI 19.3 BP 112/68 Blood Pressure Location Rt brachial Position Sitting Pulse 79 Pulse Source Pulse Oximeter Temp 98.3 F Temp Source Oral Pulse Oximetry (%) 98 Oxygen Delivery Method Room Air Intake Visit Reasons: EP-pinworms, need testing Patient Tobacco Use Status: Former Tobacco user Furniture Installer Required: No Allergies No Known Allergies (No Known Allergies*) Allergy (Verified 01/19/25 15:13) Do you need a note to return to daycare/school/sports/work: No HPI HPI Comments History of Present Illness Details This is a 29-year-old female who presented to the walk-in clinic complaining of diffuse pruritus and rash. She states she has significant anal pruritus as well as pruritus and rash of her arms, legs, and trunk/back. She was seen at the walk-in clinic on 01/11/2025 and she was diagnosed with scabies. She was given a prescription for permethrin cream as well as oral hydroxyzine for pruritus. Patient states she is using the cream as prescribed; however, she was unable to tell me exactly how she has been using it. She states her 3-year-old son is having similar symptoms. She states she put his stuffed animals in a trash bag; however, she has not cleaned or washed their sheets or clothes. ON LICENSE OF [facility] Medical History Stomach acid Family History Maternal Grandmother Diabetes Cancer of breast Father Diabetes HTN (hypertension) Obesity Sister Microcephalic Social History Household Members: Significant Other and Other Household Members Other:: Significant other's mother Housing: Apartment Are you a primary rn patient care to a significant other at home: No Do you presently have visiting nurse or other home services: No Alcohol intake: former Patient Tobacco Use Status: Former Tobacco user e-Cigarette/Vaping Use: Never Used Substance Use Type: Marijuana service: No Current occupational status: unemployed Gender identity: Female Cognitive needs: No Hearing needs: No Vision needs: No Female Reproductive History Menstrual Age of Menarche: 14 Review of Systems Const All systems reviewed & are unremarkable except as noted in HPI and below Reports no additional complaints Eyes Reports no additional complaints ENT Reports no additional complaints Card Reports no additional complaints Resp Reports no additional complaints GI Reports no additional complaints Reports no additional complaints Musc Reports no additional complaints Skin/Breast Reports system reviewed and no additional complaints, except as documented Neuro Reports no additional complaints Psych Reports no additional complaints Endo Reports no additional complaints León/Lymph Reports no additional complaints Aller/Immun Reports no additional complaints Physical Exam Vital Signs: Last Vital Signs Temp 98.3 F 01/19/25 15:08 Pulse 79 01/19/25 15:08 BP 112/68 01/19/25 15:08 Pulse Ox 98 01/19/25 15:08 Oxygen Delivery Method Room Air 01/19/25 15:08 BMI result Body Mass Index 19.3 Const Other: Vital signs reviewed. Constitutional: Non-toxic appearing. No acute distress. Well-developed and well-nourished. HEENT: Normocephalic and atraumatic. Skin: There are scant areas of a maculopapular rash to her left upper back, left lateral neck, left mid back, and left posterior calf. There is no rash noted on her hands or feet. Neck: Full and painless range of motion. No cervical lymphadenopathy. Cardio: Regular rate. No lower extremity edema. No JVD. Pulmonary: No respiratory distress. No accessory muscle usage. Gastrointestinal: Leaf Sorter present. There is no erythema or rash of the anal skin. No hemorrhoids appreciated. Musculoskeletal: Normal range of motion in joints throughout the body. No deformity or other signs of injury. Neuro: Alert and oriented x4. Cranial nerves 2-12 grossly intact. No focal deficits appreciated. Psych: Tearful affect, anxious. Assessment & Plan Assessment & Plan (1) Scabies: Code(s): B86 - Scabies Plan This is a 29-year-old female who presented to the walk-in clinic complaining of persistent diffuse pruritus following recent scabies diagnosis. Upon further questioning, it does not appear that patient used permethrin cream correctly and she did not wash the bed sheets or clothes likely causing persistent infestation. Patient was given a refill on the permethrin cream and re-educated on appropriate use and she was educated to wash their bed sheets and clothes in hot water. Patient encouraged to follow-up with dermatology as soon as possible for further evaluation and management. Patient verbalized understanding and is agreeable with the plan. Patient was extremely appreciative of the help and support. Medications: Refilled permethrin 5% Apply to affected areas, leave on for 8-14 hours then rinse off completely. Apply second treatment 14 days after first treatment if symptoms/mites persist. 1 appl topical Q14D 60 grams 0RF Coding Level of Care Code Est Pt Level 3 (65606) Diagnoses Scabies B86
== END 2025-01-19 16:11 | disposition home or self-care (01) ==
PROVIDERS: PCP Internal Medicine; Visit Provider Physician Assistant Medical
DX: B86 Scabies (principal)

== ENCOUNTER → 2025-01-19 15:04 | Outpatient (BNVA) | payer OTHER, SELFPAY | PROVIDERS: PCP Internal Medicine; Visit Provider Physician Assistant Medical | DX: B86 Scabies (principal) | CPT/HCPCS: 99212 ==

== ENCOUNTER 2025-01-26 14:41 | Outpatient (AMB) | payer OTHER, SELFPAY ==
--- NOTE | 2025-01-26 14:45 | A.OFFPC_ITS ---
Intake Visit Reasons: Telehealth visit Allergies No Known Allergies (No Known Allergies*) Allergy (Verified 01/19/25 15:13) Medication List - Last Reconciled 01/26/25 by Joy Simpson MD betamethasone dipropionate 0.05% 1 appl topical BID hydroxyzine HCl 25 mg PO BEDTIME permethrin 5% 1 appl topical Q14D Tobacco use date assessed: 09/26/24 Dental Screening Dental Screen Date: 09/26/24 HPI Telehealth visit HPI Details Patient is 29-year-old female who has been having anal itching for the past few weeks Patient says that her son also has been having same issue but he has not had him checked She would like to have a pinworm test done Order placed [facility] Medical History Stomach acid Family History Maternal Grandmother Diabetes Cancer of breast Father Diabetes HTN (hypertension) Obesity Sister Microcephalic Social History Household Members: Significant Other and Other Household Members Other:: Significant other's mother Housing: Apartment Are you a primary healthcare interpreter to a significant other at home: No Do you presently have visiting nurse or other home services: No Alcohol intake: former Patient Tobacco Use Status: Former Tobacco user e-Cigarette/Vaping Use: Never Used Substance Use Type: Marijuana service: No Current occupational status: unemployed Gender identity: Female Cognitive needs: No Hearing needs: No Vision needs: No Female Reproductive History Menstrual Age of Menarche: 14 Questionnaire Thrive Questionnaire Date Thrive assessed: 07/20/24 BRODIE-7 AMB Questionnaire BRODIE-7 Date BRODIE - 7 assessed: 07/21/24 Source: Developed by Drs. Gerard Chandler, Elizabet Horner, Stephon Craig and colleagues, with an educational chintan from [employer]. Physical exam (Primary Care) Tobacco/Smoking Status: Tobacco use Status Tobacco use date assessed 09/26/24 09/26/24 09:16 Patient Tobacco Use Status Former Tobacco user 01/19/25 15:13 e-Cigarette/Vaping Use Never Used 09/26/24 09:16 Thrive Assessment: Date of Thrive Assessment Date Thrive assessed 07/20/24 01/11/25 12:09 Telehealth Telehealth Telehealth Platform: [facility] Location of provider rendering services: practice address Location of patient: address on file Patient Identification confirmed using: Name, : Yes Telehealth method: voice only Patient verbally consented to treatment: Yes Patient verbally consented to billing insurance company: Yes Patient informed of any privacy concerns related to visit: Yes Minutes spent on Phone/Video with Pt.: 13 Coding Level of Care Code Tele Est Pt Level 3 (75644) Diagnoses Anal itching L29.0 Assessment & Plan Assessment & Plan (1) Anal itching: Code(s): L29.0 - Pruritus ani Category: Medical Plan Patient is 29-year-old female who has been having anal itching for the past few weeks Patient says that her son also has been having same issue but he has not had him checked She would like to have a pinworm test done Order placed
== END 2025-01-26 15:41 | disposition home or self-care (01) ==
LOC: HO.HMCC 14:41
PROVIDERS: PCP Internal Medicine; Visit Provider Internal Medicine
DX: L29.0 Pruritus ani (principal)

== ENCOUNTER 2025-01-27 10:18 | Outpatient (REF) | payer OTHER, SELFPAY | END 2025-01-27 10:19 | disposition home or self-care (01) | LOC: HO.HMGCLDS 10:18 | PROVIDERS: PCP Internal Medicine; Visit Provider Internal Medicine | DX: Z13.89 Encounter for screening for other disorder (principal) ==

== ENCOUNTER 2025-02-01 16:42 | Outpatient (REF) | payer OTHER, SELFPAY | END 2025-02-01 16:43 | disposition home or self-care (01) | LOC: HO.LAB 16:42 | PROVIDERS: PCP Internal Medicine; Visit Provider Internal Medicine | DX: Z13.89 Encounter for screening for other disorder (principal) ==

== ENCOUNTER 2025-02-15 09:43 | Outpatient (REF) | payer OTHER, SELFPAY ==
--- OUTSIDE RECORDS SUMMARY | 2025-02-16 16:12 | XMS_ITS | Encounter Summary ---
Author Organization [facility] Address [address] [place] [address] Phone Care Team Providers Care Time Study Clerk Name Role Phone Jassi Ambrocio MD Primary Care Provider [phone] Encounter Details Date Type Department Care Team (Late st Contact Info) Description 02/04/2017 Conversion Encounter [facility] [address] [place] [address] Social History Tobacco Use Types Packs/Day Years [...] on filedocumented in this encounter Care Teams Time Study Clerk Relationship Specialty Start Date End Date Jassi Ambrocio MD [address] [place] [address] PCP - General 01/29/17 09/02/22 documented as of this encounter
--- OUTSIDE RECORDS SUMMARY | 2025-02-16 16:12 | XMS_ITS | Encounter Summary ---
Author Organization [facility] Address [address] [place] [address] Phone Care Team Providers Care Tie Fastener Name Role Phone Jassi Ambrocio MD Primary Care Provider [phone] Encounter Details Date Type Department Care Team (Late st Contact Info) Description 12/11/2016 Documentation EM Family Medicine [address] [place] [address] Family Medicine, Physician [address] [place], [place] [phone] Social History Tobacco Use Types Packs/Day Years [...] on filedocumented in this encounter Care Teams Tie Fastener Relationship Specialty Start Date End Date Jassi Ambrocio MD [address] [place], [place] [address] [address] PCP - General 01/29/17 09/02/22 documented as of this encounter
--- OUTSIDE RECORDS SUMMARY | 2025-02-16 16:12 | XMS_ITS | Clinical Summary ---
Author Organization [facility] Address [address] [place] [address] Phone Care Team Providers Care Manager Area Name Role Phone Unavailable Primary Care Provider [...] dislocation of hip, Family history of Sudden /[place] under 55, Family history of Deafness, Family [...] 86 05/11/2016 12:00 AM EST Temperature 37.7 C (99.9 F) 03/19/2015 12:00 AM EDT Respiratory Rate - - Oxygen Saturation - [...] 01/30/2019 01/30/2009, 06/09/2001, 10/11/1997, Additional history exists COVID-19 Vaccine ( season) 2024 Influenza Vaccines (#1) 2025 05/11/20 16, 03/19/2015, 04/09/2014, Additional history exists HIB Vaccines Completed 08/03/1997, 09/20, 1996, Additional [...] complete this topic Procedures * Due to [facility] law, this organization might not be sharing sensitive test results. Procedure Name Priority Date/Time Associated Diagnosis Comments CHLAMYDIA AND GONORRHEA, AMPLIFIED Routine 05/12/2016 1:05 PM EST from Last 3 Months or Most Recently Relevant to Health Maintenance Results * Due to [place] [facility] [place] [facility] law, this organization might not be sharing sensitive test results. * Chlamydia and Gonorrhoea, Amplified (05/12/2016 1:05 PM EST) Pathologist [facility] URINE CHLAMYDIA AMP PROBE NEGATIVE [facility] Comment: No Chlamydia Trachomatis RNA detected in this patient's sample (REFERENCE RANGE/NORMAL VALUE: NOT DETECTED) URINE GC AMP PROBE NEGATIVE [facility] Comment: No Neisseria Gonorrhoeae RNA detected in this patient's sample (REFERENCE RANGE/NORMAL VALUE: NOT DETECTED) NOTE: This test uses plywood stock grader-mediated amplification method to detect rRNA from C.Trachomatis [...] without risk of sexual abuse. Consult the [facility] if needed. Contact phone number . Therapeutic failure or success cannot be determined with the Aptima Combo2 assay since nucleic acid may persist following appropriate antimicrobial therapy. The Centers for Disease Control and Prevention (CDC) recommends confirmatory retesting using culture or a different nucleic acid amplification test when positive results occur, if indicated. Testing performed or reported by [facility], a Service of [facility], Nathaly Issa R[place]ARDO Garcia [address] [facility] [id number] Joselo Haq MD, PhD, Software Program Manager 05/12/2016 1:05 PM EST Narrative [facility] - 05/12/2016 1:05 PM EST URINE CHLAMYDIA GC AMP PROBE us Jassi Ambrocio MD LAB MICROBIOLOGY - GENERAL ORD ERABLES Final Result [facility] [address] [place] [address], [place] from Last 3 Months or Most Recently Relevant to Health Maintenance
--- OUTSIDE RECORDS SUMMARY | 2025-02-16 16:12 | XMS_ITS | Encounter Summary ---
Author Organization [facility] Address [address] [place] [address] Phone Care Team Providers Care Correction Officer Name Role Phone Jassi Ambrocio MD Primary Care Provider [phone] Encounter Details Date Type Department Care Team (Late st Contact Info) Description 06/30/2012 Documentation EM Family Medicine [address] [place] [address] Family Medicine, Physician [address] [place], [place] [phone] Social History Tobacco Use Types Packs/Day Years [...] on filedocumented in this encounter Care Teams Correction Officer Relationship Specialty Start Date End Date Jassi Ambrocio MD [address] [place] [address] [place] [address] PCP - General 01/29/17 09/02/22 documented as of this encounter
== END 2025-02-15 09:44 | disposition home or self-care (01) ==
LOC: HO.LNP 09:43
PROVIDERS: Visit Provider Internal Medicine
DX: Z13.89 Encounter for screening for other disorder (principal)

== ENCOUNTER 2025-04-04 12:16 | Outpatient (REF) | payer OTHER, SELFPAY ==
[2025-04-04 16:13] LABS: MANUAL DIFF FLAG NO
[2025-04-04 16:19] LABS: Hematocrit 38.4 % (37.0-47.0); Hemoglobin 12.4 g/dl (12.0-16.0); Imm Gran Abs Auto 0.01 X10*3/uL (0.00-0.03); Imm Gran Pct Auto 0.1 % (0.0-0.4); Lymphocytes Absolute Auto 2.5 X10*3/uL (1.2-4.9); Mean Corpuscular HGB Conc 32.3 g/dl (31.0-35.0); Mean Corpuscular Hemoglobin 33.2 pg (27.0-33.0); Mean Corpuscular Volume 102.9 fL (80.0-98.0); NRBC Abs Auto 0.000 X10*3/uL (0.0-0.012); NRBC Pct Auto 0.0 /100WBC (0.0-0.2); Platelet Count 262 X10*3/uL (160-400); Red Blood Count 3.73 X10*6/uL (4.20-5.50); White Blood Count 6.9 X10*3/uL (4.8-10.8)
[2025-04-04 16:52] LABS: Alanine Aminotransferase 12 U/L (0-31); Albumin Level 4.9 g/dL (3.5-5.0); Alkaline Phosphatase 56 U/L (39-117); Anion Gap 10 (12-20); Aspartate Amino Transferase 20 U/L (5-31); Blood Urea Nitrogen 10 mg/dL (9-16); Calcium 9.5 mg/dL (8.4-10.2); Carbon Dioxide 26 mmol/L (22-29); Chloride 107 mmol/L (96-108); Cholesterol 157 mg/dL (<200); Estimated Glomerular Filt Rate > 60; HDL Cholesterol 56 mg/dL (>40); Potassium 4.1 mmol/L (3.3-5.1); Sodium 139 mmol/L (135-145); Total Protein 7.6 g/dL (6.5-8.0); Triglycerides 91 mg/dL (<150)
== END 2025-04-04 12:17 | disposition home or self-care (01) ==
LOC: HO.HMGCLDS 12:16
PROVIDERS: PCP Internal Medicine; Visit Provider Internal Medicine
DX: Z76.89 Persons encountering health services in other specified circumstances (principal); E55.9 Vitamin D deficiency, unspecified; F33.41 Major depressive disorder, recurrent, in partial remission; F41.9 Anxiety disorder, unspecified; E28.2 Polycystic ovarian syndrome
CPT/HCPCS: 36415; 80053; 80061; 84443; 85025; 96127; 99395

== ENCOUNTER 2025-04-04 12:16 | Outpatient (AMB) | payer OTHER, SELFPAY ==
[2025-04-04 12:20] VITALS: BP 108/68; PULSE 73; O2SAT 98; BMI 18.6
--- NOTE | 2025-04-04 12:20 | MHC.PC.OV ---
Vital Signs 04/04/25 12:20 Height 5 ft 1 in Weight 98 lb 6 oz BMI 18.6 BP 108/68 Blood Pressure Location Lt brachial Position Sitting Pulse 73 Pulse Source Pulse Oximeter Pulse Oximetry (%) 98 Intake Visit Reasons: Annual PE Ski Molder Required: No Accompanied by: Self / Same As Patient Allergies No Known Allergies (No Known Allergies*) Allergy (Verified 04/04/25 12:20) Medication List - Last Reconciled 04/04/25 by Joy Simpson MD No Known Home Meds Tobacco use date assessed: 09/26/24 Dental Screening Dental Screen Date: 09/26/24 HPI Annual PE HPI Details History of Present Illness The patient is a 29 year old female presenting for annual physical examination. Polycystic Ovarian Syndrome (PCOS): - The patient reports recent OBGYN consultation in February 2025. - Has history of PCOS diagnosed following pelvic pain and confirmed by ultrasound. - Patient is concerned about potential development of diabetes, as there is a family history. Vitamin D deficiency: - Previously identified as deficient in Vitamin D, with a prescription for supplementation. - Admitted to lapses in vitamin D supplementation, needs reinforcement in adherence to therapy. Medical History: - Polycystic Ovarian Syndrome (PCOS) - Vitamin D deficiency - Depression established with a therapist Social History: - Reports trying to maintain a healthy diet. - Engages in some exercise, primarily walking. - Taking steps to avoid type 2 diabetes through lifestyle modifications. - Reports symptoms of back pain, consideration for physical therapy discussed. - Seeing a therapist for mental health support, indicating ongoing care for depression. Family History: - Family history of diabetes (grandmother). Health Maintenance - Regular blood work, including kidney function, liver function, hemoglobin, cholesterol, and thyroid levels. - Discussed importance of vitamin D supplementation as a measure for disease prevention. - No current flu vaccination, patient declines due to previous adverse reactions. [place] [facility] [place] - Ongoing consultation with an OBGYN for PCOS. - Seeing a therapist for mental health support. Patient Instructions - Begin taking vitamin D supplements daily as prescribed. - Consider getting flu vaccination at a pharmacy if willing. - Engage in regular walking or physical activity gradually increasing duration. - Maintain a healthy diet to prevent progression to diabetes. - Follow up with OBGYN for PCOS management as needed. - consider physical therapy for chronic lower back pain Physical exam in 1 year Review of Systems - General: No fever no chills - Neurological: No headaches no dizziness - Ear nose throat: No sore throat no hearing difficulty no ear pain - Cardiovascular: No syncope, no chest pain, no palpitations - Gastrointestinal: No nausea vomiting or diarrhea - Endocrine: No polyuria polydipsia no heat intolerance - Genitourinary: No dysuria - Skin: No new complaints Physical Exam General: Cooperative, healthy appearing, comfortable, no acute distress Orientation: Patient oriented x3 Head: Normal to inspection Ears: Within normal limit visually, no redness, no wax Nose: Normal external nose present, perfectly normal Face and sinus: Normal facial exam Eyes: Appearance normal, extraocular movement intact pupils reactive Neck: Normal visual inspection and supple Respiratory: Normal respiratory effort and able to speak in complete sentences. Clear to auscultation, no stridor Cardiovascular: S1 and S2 RRR GI: Normal to inspection. Soft to palpation and nontender Skin: Turgor normal, no acute findings Neuro: Patient oriented x3, motor sensory intact, balance intact, tandem pass Extremities: Normal to inspection, full range of motion . [facility] Medical History Stomach acid Family History Maternal Grandmother Diabetes Cancer of breast Father Diabetes HTN (hypertension) Obesity Sister Microcephalic Social History Household Members: Significant Other and Other Household Members Other:: Significant other's mother Housing: Apartment Are you a primary home care physical therapist to a significant other at home: No Do you presently have visiting nurse or other home services: No Alcohol intake: former Patient Tobacco Use Status: Former Tobacco user e-Cigarette/Vaping Use: Never Used Substance Use Type: Marijuana service: No Current occupational status: unemployed Gender identity: Female Cognitive needs: No Hearing needs: No Vision needs: No Female Reproductive History Menstrual Age of Menarche: 14 Questionnaire Thrive Questionnaire Date Thrive assessed: 07/20/24 I am a: Patient What is your living situation today?: I have a steady place to live Within the past 12 months, did the food you bought not last and you didn't have the money to get more?: Never true Within the past 12 months, did you worry whether your food would run out before you got money to buy more?: Never true Do you have trouble paying for medicines?: Yes Do you have trouble getting transportation to medical appointments?: Yes Do you have trouble paying your heating and electricity bill?: Yes Do you have trouble taking care of your child, family member or friend?: No Do you have trouble with day-to-day activities such as bathing, preparing meals, shopping, managing finances, etc.?: No Are you currently unemployed and looking for a job?: Yes Are you interested in more education?: No Currently or been in a relationship where the following occur: No concerns reported THRIVE Score: 2 AUDIT C Alcohol Use Questionnaire (AUDIT-C) 1. How often do you have a drink containing alcohol?: 4 or more times a week 2. How many drinks containing alcohol do you have on a typical day when you are drinking?: 1 or 2 3. How often do you have six or more drinks on one occasion?: Never Total Score: 4 Score Reviewed/Action Taken: Yes BRODIE-7 AMB Questionnaire BRODIE-7 Date BRODIE - 7 assessed: 04/04/25 Feeling nervous, anxious, or on edge: 1 = Several days Not being able to stop or control worryin = More than half the days Worrying too much about different things: 1 = Several days Trouble relaxin = Several days Being so restless that it is hard to sit still: 1 = Several days Becoming easily annoyed or irritable: 1 = Several days Feeling afraid as if something awful might happen: 1 = Several days Total BRODIE-7 score (0-4 normal; 5-9 mild; 10-14 moderate; 15-21 severe): 8 Source: Developed by Drs. Gerard Chandler, Elizabet Horner, Stephon Craig and colleagues, with an educational chintan from [employer]. BRODIE-7 Assessment Billing BRODIE-7 Assessment Tool: BRODIE-7 Assessment 85074 Physical exam (Primary Care) Vital Signs: Last Vital Signs Pulse 73 04/04/25 12:20 BP 108/68 04/04/25 12:20 Pulse Ox 98 04/04/25 12:20 BMI result Body Mass Index 18.6 Tobacco/Smoking Status: Tobacco use Status Tobacco use date assessed 09/26/24 04/04/25 12:22 Patient Tobacco Use Status Former Tobacco user 04/04/25 12:22 e-Cigarette/Vaping Use Never Used 04/04/25 12:22 Thrive Assessment: Date of Thrive Assessment Date Thrive assessed 07/20/24 04/04/25 12:22 Currently or been in a relationship where the following occur: No concerns reported Coding Level of Care Code Est Pt Prev Care 18-39y(06844) Diagnoses Encounter for general adult medical examination without abnormal findings Z00.00 Vitamin D deficiency E55.9 Recurrent major depressive disorder, in partial remission F33.41 Active/Remission status: in partial remission Anxiety F41.9 PCOS (polycystic ovarian syndrome) E28.2 Additional Codes BRODIE-7 Assessment Billing - BRODIE-7 Assessment Tool: BRODIE-7 Assessment 48950 ([id number]) Assessment & Plan Assessment & Plan (1) Encounter for general adult medical examination without abnormal findings: Code(s): Z00.00 - Encounter for general adult medical examination without abnormal findings Category: Medical (2) Vitamin D deficiency: Code(s): E55.9 - Vitamin D deficiency, unspecified Category: Medical (3) Major depression, recurrent: Code(s): F33.9 - Major depressive disorder, recurrent, unspecified Category: Medical Qualifiers: Active/Remission status: in partial remission Qualified Code(s): F33.41 - Major depressive disorder, recurrent, in partial remission (4) Anxiety: Code(s): F41.9 - Anxiety disorder, unspecified Category: Medical (5) PCOS (polycystic ovarian syndrome): Code(s): E28.2 - Polycystic ovarian syndrome Category: Medical Plan Polycystic Ovarian Syndrome (PCOS): - The patient reports recent OBGYN consultation in February 2025. - Has history of PCOS diagnosed following pelvic pain and confirmed by ultrasound. - Patient is concerned about potential development of diabetes, as there is a family history. Vitamin D deficiency: - Previously identified as deficient in Vitamin D, with a prescription for supplementation. - Admitted to lapses in vitamin D supplementation, needs reinforcement in adherence to therapy. Medical History: - Polycystic Ovarian Syndrome (PCOS) - Vitamin D deficiency - Depression established with a therapist Social History: - Reports trying to maintain a healthy diet. - Engages in some exercise, primarily walking. - Taking steps to avoid type 2 diabetes through lifestyle modifications. - Reports symptoms of back pain, consideration for physical therapy discussed. - Seeing a therapist for mental health support, indicating ongoing care for depression. Family History: - Family history of diabetes (grandmother). Health Maintenance - Regular blood work, including kidney function, liver function, hemoglobin, cholesterol, and thyroid levels. - Discussed importance of vitamin D supplementation as a measure for disease prevention. - No current flu vaccination, patient declines due to previous adverse reactions. [place] - Ongoing consultation with an OBGYN for PCOS. - Seeing a therapist for mental health support. Patient Instructions - Begin taking vitamin D supplements daily as prescribed. - Consider getting flu vaccination at a pharmacy if willing. - Engage in regular walking or physical activity gradually increasing duration. - Maintain a healthy diet to prevent progression to diabetes. - Follow up with OBGYN for PCOS management as needed. - consider physical therapy for chronic lower back pain Physical exam in 1 year . Orders: Orders TSH reflex Free T4 Today E28.2 - Polycystic ovarian syndrome, E55.9 - Vitamin D deficiency, unspecified, F33.41 - Major depressive disorder, recurrent, in partial remission, F41.9 - Anxiety disorder, unspecified, Z76.89 - Persons encountering health services in other specified circumstances Complete Blood Count Auto Diff Today E28.2 - Polycystic ovarian syndrome, E55.9 - Vitamin D deficiency, unspecified, F33.41 - Major depressive disorder, recurrent, in partial remission, F41.9 - Anxiety disorder, unspecified, Z76.89 - Persons encountering health services in other specified circumstances Comprehensive [place]. Panel Fast Today E28.2 - Polycystic ovarian syndrome, E55.9 - Vitamin D deficiency, unspecified, F33.41 - Major depressive disorder, recurrent, in partial remission, F41.9 - Anxiety disorder, unspecified, Z76.89 - Persons encountering health services in other specified circumstances Lipid Panel Today E28.2 - Polycystic ovarian syndrome, E55.9 - Vitamin D deficiency, unspecified, F33.41 - Major depressive disorder, recurrent, in partial remission, F41.9 - Anxiety disorder, unspecified, Z76.89 - Persons encountering health services in other specified circumstances
--- OUTSIDE RECORDS SUMMARY | 2025-04-04 15:32 | XMS_ITS | Clinical Summary ---
Author Organization [facility] Address [address] [place] [id number] Phone Care Team Providers Care Mobile Plant Operators Name Role Phone Unavailable Primary Care Provider [...] dislocation of hip, Family history of Sudden /MO under 55, Family history of Deafness, Family [...] 10/11/1997, Additional history exists Influenza Vaccines (#1) 2025 05/11/20 16, 03/19/2015, 04/09/2014, Additional history exists COVID-19 Vaccine ( season) 2025 HIB Vaccines Completed 08/03/1997, 09/20, 1996, Additional [...] complete this topic Procedures * Due to [facility] law, this organization might not be sharing sensitive test results. Procedure Name Priority Date/Time Associated Diagnosis Comments CHLAMYDIA AND GONORRHEA, AMPLIFIED Routine 05/12/2016 1:05 PM EST from Last 3 Months or Most Recently Relevant to Health Maintenance Results * Due to [place] [employer] law, this organization might not be sharing sensitive test results. * Chlamydia and Gonorrhoea, Amplified (05/12/2016 1:05 PM EST) Pathologist [facility] [place] URINE CHLAMYDIA AMP PROBE NEGATIVE [facility] Comment: No Chlamydia Trachomatis RNA detected in this patient's sample (REFERENCE RANGE/NORMAL VALUE: NOT DETECTED) URINE GC AMP PROBE NEGATIVE [facility] Comment: No Neisseria Gonorrhoeae RNA detected in this patient's sample (REFERENCE RANGE/NORMAL VALUE: NOT DETECTED) NOTE: This test uses poultry husbandman-mediated amplification method to detect rRNA from C.Trachomatis [...] if indicated. Testing performed or reported by [facility], a Service of [facility], Nathaly Issa RICARDO Garcia [address] [facility] [id number] Joselo Haq MD, PhD, Animal Cruelty Investigation Supervisor 05/12/2016 1:05 PM EST Narrative [facility] - 05/12/2016 1:05 PM EST URINE CHLAMYDIA GC AMP PROBE us Jassi Ambrocio MD LAB MICROBIOLOGY - GENERAL ORD ERABLES Final Result [facility] [address] [place] [address], [place] from Last 3 Months or Most Recently Relevant to Health Maintenance
--- OUTSIDE RECORDS SUMMARY | 2025-04-04 15:32 | XMS_ITS | Encounter Summary ---
Author Organization [facility] Address [address] [place] [place] [id number] Phone Care Team Providers Care Pe Electrical Engineer Name Role Phone Jassi Ambrocio MD Primary Care Provider [phone] Encounter Details Date Type Department Care Team (Late st Contact Info) Description 12/11/2016 Documentation EM Family Medicine [address] [place] [address] Family Medicine, Physician [address] [place], [place] [phone] Social History Tobacco Use Types Packs/Day Years [...] on filedocumented in this encounter Care Teams Pe Electrical Engineer Relationship Specialty Start Date End Date Jassi Ambrocio MD [address] [place], [place] [address]RICARDO [id number] PCP - General 01/29/17 09/02/22 documented as of this encounter
--- OUTSIDE RECORDS SUMMARY | 2025-04-04 15:32 | XMS_ITS | Encounter Summary ---
Author Organization [facility] Address [address] [place] [address] Phone Care Team Providers Care Vaccine Manager Name Role Phone Jassi Ambrocio MD Primary Care Provider [phone] Encounter Details Date Type Department Care Team (Late st Contact Info) Description 06/30/2012 Documentation EM Family Medicine [address] [place] [address] Family Medicine, Physician [address] [place], [place] [phone] Social History Tobacco Use Types Packs/Day Years [...] on filedocumented in this encounter Care Teams Vaccine Manager Relationship Specialty Start Date End Date Jassi Ambrocio MD [address] [place] [address] [place] [id number] PCP - General 01/29/17 09/02/22 documented as of this encounter
--- OUTSIDE RECORDS SUMMARY | 2025-04-04 15:32 | XMS_ITS | Encounter Summary ---
Author Organization [facility] Address [address] [place] [phone] Phone Care Team Providers Care Road Patcher Name Role Phone Jassi Ambrocio MD Primary Care Provider [phone] Encounter Details Date Type Department Care Team (Late st Contact Info) Description 02/04/2017 Conversion Encounter [facility] [place] [address] [place] [address] Social History Tobacco Use Types Packs/Day Years [...] on filedocumented in this encounter Care Teams Road Patcher Relationship Specialty Start Date End Date Jassi Ambrocio MD [address] [place] [address] PCP - General 01/29/17 09/02/22 documented as of this encounter
== END 2025-04-04 13:08 | disposition home or self-care (01) ==
LOC: HO.HMCC 12:17
PROVIDERS: PCP Internal Medicine; Visit Provider Internal Medicine
DX: Z00.00 Encounter for general adult medical examination without abnormal findings (principal); E55.9 Vitamin D deficiency, unspecified; F33.41 Major depressive disorder, recurrent, in partial remission; F41.9 Anxiety disorder, unspecified; E28.2 Polycystic ovarian syndrome

== ENCOUNTER 2025-05-14 11:31 | Outpatient (REF) | payer OTHER, SELFPAY ==
[2025-05-14 23:14] LABS: Bacterial Vaginosis PCR NEGATIVE (Negative); Candida Group PCR NOT DETECTED (Not Detect); Candida glab krusei PCR NOT DETECTED (Not Detect); Trichomonas vaginalis PCR NOT DETECTED (Not Detect)
[2025-05-14 23:45] LABS: CT PCR NOT DETECTED (Not Detect.); NG PCR NOT DETECTED (Not Detect.)
== END 2025-05-14 11:32 | disposition home or self-care (01) ==
LOC: HO.LNP 11:31
PROVIDERS: PCP Internal Medicine; Visit Provider Advanced Practice Midwife
DX: Z31.9 Encounter for procreative management, unspecified (principal); Z12.4 Encounter for screening for malignant neoplasm of cervix; E28.2 Polycystic ovarian syndrome; F33.41 Major depressive disorder, recurrent, in partial remission; F41.9 Anxiety disorder, unspecified; L21.0 Seborrhea capitis; N89.8 Other specified noninflammatory disorders of vagina; Z11.51 Encounter for screening for human papillomavirus (HPV); Z20.2 Contact with and (suspected) exposure to infections with a predominantly sexual mode of transmission
CPT/HCPCS: 81515; 87491; 87591; 87626; 88175; 99385

== ENCOUNTER 2025-05-14 11:31 | Outpatient (AMB) | payer OTHER, SELFPAY ==
--- NOTE | 2025-05-14 11:34 | MHC.OFFVIS ---
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 She delivered at [facility] and she continued with the midwifery team there she says she has been seeing somebody who diagnosed her with PCOS this year she had a ultrasound in July that showed it but she does not remember having blood work. And she said she did not understand too much about it she sometimes misses her. She does not have excessive facial hair or other features. Most history was elicited with several questions. She said she wanted to come here. She says she does know that we do not have a birthing center at this time she says she is trying to get she says she is with the same partner and they talked about it her son is 3 years old and is doing well he did have some sort of cyst in his ear that required a couple of surgeries after . He goes to pre school. She is not working. She says she is taking vitamins but she would like a prescription. She says she also has eczema and dander. She has an itchy part of her labia that she says the folks at [facility] wanted her to go see a specialist for. She said she has tried a cream that began with a T but it did not really help. She says the last time she had sex was in March before her last period. [facility] Medical History (Updated 05/14/25 @ 12:39 by Jackie Squires CNM) PTSD (post-traumatic stress disorder) Anxiety Major depression, recurrent PCOS (polycystic ovarian syndrome) Stomach acid Family History Maternal Grandmother Diabetes Cancer of breast Father Diabetes HTN (hypertension) Obesity Sister Microcephalic Social History Household Members: Significant Other and Other Household Members Other:: Significant other's mother Housing: Apartment Are you a primary critical care paramedic to a significant other at home: No Do you presently have visiting nurse or other home services: No Alcohol intake: former Patient Tobacco Use Status: Former Tobacco user e-Cigarette/Vaping Use: Never Used Substance Use Type: Marijuana service: No Current occupational status: unemployed Gender identity: Female Cognitive needs: No Hearing needs: No Vision needs: No Female Reproductive History Menstrual Age of Menarche: 14 Date of last menstrual period: 04/17/25 control method: none Total pregnancies: 2 Full term: 1 Ab spontaneous: 1 Date of last pap smear: 03/21/21 (negative pap smear) History of abnormal pap smear: No Physical Exam Vital Signs: Last Vital Signs BP 108/72 05/14/25 11:47 BMI result Body Mass Index 18.9 Const General: healthy appearing, comfortable, no acute distress, well developed and alert Nutritional Appearance: average body habitus Orientation/consciousness: patient oriented x3 Limitations: no limitations HEENT Head: Yes normocephalic Neck Neck: Yes normal visual inspection Chest Chest palpation & inspection: normal inspection of the chest Breast/axilla inspection: normal inspection of the breasts and normal inspection of the axillae Breast/axilla palpation: normal palpation of the breasts and normal palpation of the axillae Resp Effort & Inspection: normal respiratory effort GI Inspection: Yes normal to inspection, No Abdominal wall edema and No distended Palpation (GI): Soft to palpation and nontender Other: Normal external exam patient demonstrated what she has as an itchy area in the left labia minora but there is no change in the color or texture of the mucosal membrane there. Patient was urged not to scratch and to wash her hands before touching anything else. Vaginal exam within normal limits normal mucosa cervix multiparous pink smooth healthy appearing with normal ectropion. No abnormal mucus or secretions uterus midposition small mobile nontender to very very slightly reverted. Adnexa nonenlarged nontender fair to good tone with Kegel.. General: Yes bladder normal to palpation External Female Exam: normal external appearance and normal appearance of the urethra Speculum Exam - Vagina: normal appearance of the vagina, normal palpation and normal vaginal discharge Speculum Exam - Cervix: normal appearance of the cervix and normal palpation Bimanual exam- vagina & uterus: normal bimanual exam, normal palpation, uterine size normal, bladder normal to palpation, consistency normal, normal palpation, uterine mobility normal, uterine shape normal, non-tender and no cervical motion tenderness Bimanual Exam- Adnexa, other: normal adnexae, no masses, normal and No adnexal tenderness Neuro General: patient oriented x3 Results Reviewed Results Reviewed: Name: Anuradha Veliz Age/Sex: 25/F Attending: Jackie Squires CNM : 1995 Submitted by: Jackie Squires CNM Copies to: Joy Simpson MD MR #: [id number] Status: DEP REF Collected: 03/21/21 Location: .LAB Received: 03/24/21 Interpretation Satisfactory for evaluation. No endocervical cells seen. Negative for intraepithelial lesion or malignancy. Clinical Information LMP: Previous PAP test: No previous pap Material Received ThinPrep- Cervical Copies To Joy Simpson MD [address] [facility] [address] Jyoti [place] [id number] Jackie Squires CNM [address] [place] [address] Dr. Rodrick Garcia [place] [id number] Electronically Signed By: SCOOTER Marina ([facility]) 04/04/21 0928 The Pap Test is a screening procedure with the inherent possibility of both false negative and false positive results. Results should be interpreted in the context of historic and current clinical findings. Reliability of the Pap Test is enhanced by performing the test on a regular repetitive basis. Patient: Veliz,Anuradha Page 1 of 1 Assessment & Plan Assessment & Plan (1) PCOS (polycystic ovarian syndrome): Code(s): E28.2 - Polycystic ovarian syndrome Category: Medical (2) Anxiety: Code(s): F41.9 - Anxiety disorder, unspecified Category: Medical (3) Major depression, recurrent: Code(s): F33.9 - Major depressive disorder, recurrent, unspecified Category: Medical Qualifiers: Active/Remission status: in partial remission Qualified Code(s): F33.41 - Major depressive disorder, recurrent, in partial remission (4) Cervical cancer screening: Comment: 03/21/21 pap= neg Code(s): Z12.4 - Encounter for screening for malignant neoplasm of cervix Category: Medical (5) Vaginal irritation: Comment: No pathology evident patient itching of left labia however she is also scratching elsewhere in her body discussed the possibility it maybe related to her anxiety will offer Monistat and a 1 time dose of fluconazole for trial discussed that fluconazole will not be available if she gets . Code(s): N89.8 - Other specified noninflammatory disorders of vagina Category: Medical (6) Patient desires : Comment: Rx for vitamins sent. Says she was recently diagnosed with PCOS says she missed 1 period This year. Code(s): Z31.9 - Encounter for procreative management, unspecified Category: Medical (7) Dandruff in adult: Comment: Not immediately evident but patient is scratching and she says she has bad dander of recommend daily use of Selsun Blue shampoo or equivalent.... Code(s): L21.0 - Seborrhea capitis Category: Medical Plan -----Discussed in this visit the following: healthy balanced diet, regular and consistent exercise, getting recommended health screens, doing the best she can for her particular health concerns, kegel exercises, pap smear screening and followup recommendations, mammography screening and SBE, normal changes in cycles in her life stage--- . Pap smear done teaching done about PCOS in somewhat brief terms patient says it was diagnosed at the [facility] midwifery program will have patient sign for records of anything to do with that diagnosis and also her delivery. She is trying to get again discussed that sometimes it can make it a little bit challenging to time a however she has not had sex since March so in the cycle is not even a possibility. She does not exhibit many of the features of PCOS. She says they diagnosed at by ultrasound. I am prescribing vitamins for her in anticipation of a future . For her vaginal itching I am trialing a course of Monistat cream and a 1 time dose of fluconazole (with a repeat dose in the package in case it is necessary in 3 days. Suggested cutting her nails I also recommend Selsun Blue shampoo on a daily basis to help with her dander if and also other possible tineas. RTC 1 year. I did review that if she does get there still is no birthing center [facility]. Medications: New PNV,calcium 52-auet-rrmjh acid 27 mg iron- 1 mg ( Vitamins Plus Low Iron) 1 tab PO DAILY 100 tabs 1RF miconazole nitrate 2% (Miconazole-7) 1 appful vaginal BEDTIME 45 grams 1RF 7 days fluconazole may repeat second dose 72 hrs after first dose if symptoms persist 150 mg PO Q3D 2 tabs 0RF 2 doses Coding Level of Care Code New Pt Prev Care 18-39yr([id number] Diagnoses PCOS (polycystic ovarian syndrome) E28.2 Anxiety F41.9 Recurrent major depressive disorder, in partial remission F33.41 Active/Remission status: in partial remission Cervical cancer screening Z12.4 Vaginal irritation N89.8 Patient desires Z31.9 Dandruff in adult L21.0
[2025-05-14 11:47] VITALS: BP 108/72; BMI 18.9
--- OUTSIDE RECORDS SUMMARY | 2025-05-14 15:15 | XMS_ITS | Encounter Summary ---
Author Organization [facility] Address [address] [place] [id number] Phone Care Team Providers Care Automobile Rental Representative Name Role Phone Jassi Ambrocio MD Primary Care Provider [phone] Encounter Details Date Type Department Care Team (Late st Contact Info) Description 06/30/2012 Documentation EM Family Medicine [address] [place] [address] Family Medicine, Physician [address] [place], [place] [id number] Social History Tobacco Use Types Packs/Day Years [...] on filedocumented in this encounter Care Teams Automobile Rental Representative Relationship Specialty Start Date End Date Jassi Ambrocio MD [address] [place] [address] [place] [address] PCP - General 01/29/17 09/02/22 documented as of this encounter
--- OUTSIDE RECORDS SUMMARY | 2025-05-14 15:15 | XMS_ITS | Encounter Summary ---
Author Organization [facility] Address [address] [place] [address] Phone Care Team Providers Care Road Supervisor Of Engines Name Role Phone Jassi Ambrocio MD Primary Care Provider [phone] Encounter Details Date Type Department Care Team (Late st Contact Info) Description 02/04/2017 Conversion Encounter [facility] [place] [address] [place] [address] Social History Tobacco Use Types Packs/Day Years [...] filedocumented in this encounter Care Teams Road Supervisor Of Engines Relationship Specialty Start Date End Date Jassi Ambrocio MD [address] [place] [address] PCP - General 01/29/17 09/02/22 documented as of this encounter
--- OUTSIDE RECORDS SUMMARY | 2025-05-14 15:15 | XMS_ITS | Clinical Summary ---
Author Organization [facility] Address [address] [place] [address] Phone Care Team Providers Care Deputy Fire Marshal Name Role Phone Unavailable Primary Care Provider [...] dislocation of hip, Family history of Sudden /ND under 55, Family history of Deafness, Family [...] complete this topic Procedures * Due to [facility] law, this organization might not be sharing sensitive test results. Procedure Name Priority Date/Time Associated Diagnosis Comments CHLAMYDIA AND GONORRHEA, AMPLIFIED Routine 05/12/2016 1:05 PM EST from Last 3 Months or Most Recently Relevant to Health Maintenance Results * Due to [place] [employer] law, this organization might not be sharing sensitive test results. * Chlamydia and Gonorrhoea, Amplified (05/12/2016 1:05 PM EST) Pathologist [facility] URINE CHLAMYDIA AMP PROBE NEGATIVE [facility] Comment: No Chlamydia Trachomatis RNA detected in this patient's sample (REFERENCE RANGE/NORMAL VALUE: NOT DETECTED) URINE GC AMP PROBE NEGATIVE [facility] Comment: No Neisseria Gonorrhoeae RNA detected in this patient's sample (REFERENCE RANGE/NORMAL VALUE: NOT DETECTED) NOTE: This test uses eeg technologist-mediated amplification method to detect rRNA from C.Trachomatis [...] without risk of sexual abuse. Consult the [facility] if needed. Contact phone number . Therapeutic failure or success cannot be determined with the Aptima Combo2 assay since nucleic acid may persist following appropriate antimicrobial therapy. The Centers for Disease Control and Prevention (CDC) recommends confirmatory retesting using culture or a different nucleic acid amplification test when positive results occur, if indicated. Testing performed or reported by [facility], a Service of [facility], Nathaly Issa RICARDO Garcia [address] [facility] [id number] Joselo Haq MD, PhD, Bending Press Operator 05/12/2016 1:05 PM EST Narrative [facility] - 05/12/2016 1:05 PM EST URINE CHLAMYDIA GC AMP PROBE us Jassi Ambrocio MD LAB MICROBIOLOGY - GENERAL ORD ERABLES Final Result [facility] [address] [place] [address], [place] from Last 3 Months or Most Recently Relevant to Health Maintenance
--- OUTSIDE RECORDS SUMMARY | 2025-05-14 15:15 | XMS_ITS | Encounter Summary ---
Author Organization [facility] Address [address] [place] [address] Phone Care Team Providers Care Kindergarten Teacher Assistant Name Role Phone Jassi Ambrocio MD Primary Care Provider [phone] Encounter Details Date Type Department Care Team (Late st Contact Info) Description 12/11/2016 Documentation EM Family Medicine [address] [place] [address] Family Medicine, Physician [address] [place], [place] [phone] Social History Tobacco Use Types Packs/Day Years [...] on filedocumented in this encounter Care Teams Kindergarten Teacher Assistant Relationship Specialty Start Date End Date Jassi Ambrocio MD [address] [place], [place] [address]RICARDO [address] PCP - General 01/29/17 09/02/22 documented as of this encounter
== END 2025-05-14 12:31 | disposition home or self-care (01) ==
LOC: HO.HWS 11:31
PROVIDERS: PCP Internal Medicine; Visit Provider Advanced Practice Midwife
DX: Z01.419 Encounter for gynecological examination (general) (routine) without abnormal findings (principal); E28.2 Polycystic ovarian syndrome; F41.9 Anxiety disorder, unspecified; F33.41 Major depressive disorder, recurrent, in partial remission; N89.8 Other specified noninflammatory disorders of vagina; Z31.9 Encounter for procreative management, unspecified; L21.0 Seborrhea capitis
CPT/HCPCS: 99385; 99459